=== PATIENT | female | born 1965 | race Caucasian/White ===

== ENCOUNTER 2020-03-16 07:06 | Day surgery (SDC) | payer BC ==
[2020-03-16] MEDS ORDERED: LIDOCAINE 1% MPF 5 ML VIAL ONE (07:31)
[2020-03-16] MEDS ORDERED: dexAMETHasone 10 MG/ML VIAL ONE (07:31)
[2020-03-16] MEDS ORDERED: MIDAZOLAM HCL 2 MG/2 ML INJ ONE (07:31)
[2020-03-16] MEDS ORDERED: propofoL 200 MG/20 ML VIAL IV ONE (07:31)
[2020-03-16] MEDS ORDERED: LIDOCAINE 1% W/EPI 1:100,000 10 ML VIAL ONE (07:31)
[2020-03-16] MEDS ORDERED: FENTANYL CITR 100 MCG/2 ML ONE (07:31)
[2020-03-16] MEDS ORDERED: Ringers Lactate 1,000 ML IV ONE (07:40)
[2020-03-16] MEDS ORDERED: KETOROLAC 30 MG/ML INJ ONE (09:02)
[2020-03-16] MEDS ORDERED: ONDANSETRON 4 MG/2 ML VIAL ONE ×2 (09:10→09:47)
[2020-03-16] MEDS: MORPHINE 4 MG/ML SYR ONE ×2 (09:27→09:32)
[2020-03-16] MEDS ORDERED: IBUPROFEN 200 MG TAB PO ONE (10:34)
[2020-03-16 11:55] VITALS: BP 105/62; TEMP 97.3; O2SAT 98
--- NOTE | 2020-03-16 16:07 | RAD REPORT ---
EXAM DESCRIPTION: US - Ultrasound Intraop - 03/16/2020 8:50 am CLINICAL HISTORY: Clinical history are hysteroscopy D and C. COMPARISON: None. FINDINGS: Sonographic guidance was given to Dr. Reich for a hysteroscopy D and C. Please refer to her report for additional findings. IMPRESSION: Sonographic guidance as described above.
--- NOTE | 2020-03-16 18:53 | OP ---
Date of Procedure: 03/16/2020 Surgeon: Corie Reich MD Preoperative Diagnosis: Postmenopausal bleeding, right lower quadrant pain and hematometra. Postoperative Diagnosis: Postmenopausal bleeding, right lower quadrant pain and hematometra. No jessica dence of hematometra. Procedure Performed: Hysteroscopy, dilatation and curettage under ultrasound guidance. Anesthesia: General with LMA. Specimens: Endometrial curettings. Complications: No complications. Drains: No drains. Condition: Stable. Findings: Uterus was anteflexed. The canal was easily opened. Pelvic ultrasound was used to guide the dilator once uterine cavity in the sagittal section was identified. The sound was passed under d irect visualization. The stenosis sound was removed. The vulva, vagina, and perineum were prepped a nd draped in a sterile fashion. Speculum was placed to expose the cervix. Anterior lip was grasped with an Allis clamp. Then diagnostic hysteroscope was introduced into the cervical canal and under d irect visualization uterine cavity was entered. The cavity was empty. There was a small amount of c lot that was cleaned out. No evidence of any other adhesions. The cavity was undistorted and no abn ormal areas noted. Endometrial sampling was performed with a small endometrial curette adequately. cavity empty. Endometrial sample was performed with the curette. No polyp noted. Details Of Procedure: The patient is a 54-year-old female with history of endometrial ablation for h eavy bleeding. She was noted to present with postmenopausal bleeding and right lower quadrant pain. On transvaginal ultrasound, there appeared to be thickened endometrium suspicious for a hematometra or a polyp. So, given the risk that there could be cervical stenosis, she was consented to have this procedure at the hospital. She was also extremely anxious and needed some anesthesia to perform thi s procedure. Bleeding, infection, perforation of the uterus were all reviewed with the patient. The patient was c onsented. Her was also present in the preop area and reviewed this again, and she was taken back to OR, placed in supine fashion on the operating table. General anesthesia was given with LMA. Vulva, vagina, and perineum were prepped and draped in a sterile fashion. Ultrasound was performed. The pelvic ultrasound was performed to identify the uterus. The uterus was scanned in a sagittal a nd transverse section. Then under sagittal guidance, an Allis clamp was placed in the anterior lip a nd cervical dilator was used to dilate the cervix. Then, diagnostic hysteroscope was introduced unde r direct vision and entered the uterine cavity without problems. Then the ultrasound was discontinue d. I went down to take pictures. Scope was removed. Endometrial curettings were performed. There was no need for any MyoSure device. All the instruments were removed. No polyp was present either. Specimen was handed off for permanent pathology. Instruments were removed. Instruments, needle and sponge counts were correct at the end of the case. The patient tolerated the procedure well. EBL w as minimal. The patient was recovered from anesthesia and taken to PACU in stable condition. Findin gs were reviewed with the and she will be given the results as well as pathology results at h er followup appointment. GABBY Voice ID: [id number] Report ID: [id number]
--- OUTSIDE RECORDS SUMMARY | 2020-03-17 02:52 | XMS REPORT | Summary of Care ---
:1965 Author Organization [facility] Address [address] [place] [address] Care Team Providers Name Role Phone Stuart Amezquita Primary Care Provider Stuart Amezquita Unavailable Reason for Referral MRI/CAT Scan (Routine) Status Reason Specialty Diagnoses / Referred By Referred To Procedures Contact Contact Pending Review Diagnostic Diagnoses Right lower quadrant pain RIGHT LOWER QUADRANT PAIN Kadiyala, Radiology Procedures CT ABDOMEN PELVIS W CONTRAST CHG CT SCAN,ABDOMENT AND PELVIS,W CONTRAST CT ABDOMEN PELVIS W CONTRAST MD Corie [address] [place] [address] Reason for Visit MRI/CAT Scan (Routine) Status Reason Specialty Diagnoses / Referred By Referred To Procedures Contact Contact Pending Review Diagnostic Diagnoses Right lower quadrant pain RIGHT LOWER QUADRANT PAIN Kadiyala, Radiology Procedures CT ABDOMEN PELVIS W CONTRAST CHG CT SCAN,ABDOMENT AND PELVIS,W CONTRAST CT ABDOMEN PELVIS W CONTRAST MD Corie [address] [place] [address] Encounter Details Date Type Department Care Team Description 02/20/2020 Hospital Encounter [facility] Lynn Loaiza, Jennifer Duran MD Tomography [address] [place] [address] [place] [id number] [phone] Allergies Active Allergy Reactions Severity Noted Date Comments Latex Anaphylaxis 12/04/2014 Prednisone Other - See comments Medium 11/21/2018 Adrenal crisis per patient documented as of this encounter (statuses as of 02/21/2020) Medications Medication Sig Dispensed Refills Start Date End Date Status ciprofloxacin HCl 500 Take 1 tablet by 20 tablet 0 11/21/2018 Active mg tabletIndications: mouth 2 (two) Diverticulitis times daily. metroNIDAZOLE 500 mg Take 1 tablet by 14 tablet 0 11/21/2018 Active tabletIndications: mouth 2 (two) Diverticulitis times daily. ondansetron 4 mg Take 1 tablet by 20 tablet 0 11/21/2018 Active disintegrating mouth every 8 tabletIndications: (eight) hours as Diverticulitis needed for Nausea and Vomiting (N/V). acetaminophen-codeine Take 1 tablet by 15 tablet 0 12/05/2018 Active (TYLENOL-CODEINE #3) mouth every 6 300-30 mg (six) hours as tabletIndications: Left needed for Pain lower quadrant (scale 4-6). abdominal pain, Diverticulitis lisinopril-hydrochlorot 0 05/21/2019 Active hiazide 20-12.5 mg per tablet omeprazole 40 mg 0 05/21/2019 Ac tive capsule azithromycin 250 mg 0 07/01/2019 Active tablet documented as of this encounter (statuses as of 02/21/2020) Active Problems Problem Noted Date Rectal bleeding 12/04/2014 Essential hypertension 12/04/2014 documented as of this encounter (statuses as of 02/21/2020) Social History Tobacco Use Types Packs/Day Years Used Date Never Smoker Smokeless Tobacco: Never Used Sex Assigned at Date Recorded Not on file COVID-19 Exposure Response Date Recorded In the last month, have you been in contact with No / Unsure 02/13/2020 1:05 PM SENIOR GAME DEVELOPER someone who was confirmed or suspected to have Coronavirus / COVID-19? documented as of this encounter Last Filed Vital Signs Not on filedocumented in this encounter Plan of Treatment Health Maintenance Due Date Last Done Comments HEPATITIS C (HCV) SCREEN 1965 Depression Screening 1975 DTaP,Tdap,and Td Vaccines (1 - 11/22/1982 Tdap) PAP SMEAR 11/22/1984 Breast Cancer Screening (MAMMOGRAM) 2003 COLON CANCER SCREENING ANNUAL 11/22/2013 FIT/FOBT COLON CANCER SCREENING FIT DNA 11/22/2013 EVERY 3 YEARS COLON CANCER SCREENING 11/22/2013 SIGMOIDOSCOPY EVERY 5 YEARS COLONOSCOPY 11/22/2013 Colorectal Cancer Screening 11/22/2013 Zoster Recombinant Vaccine 11/22/2013 (SHINGRIX) (1 of 2) INFLUENZA VACCINE (#1) 2019 PNEUMOCOCCAL 0-64 YEARS COMBINED Aged Out No longer eligible based on SERIES patient's age to complete this topic documented as of this encounter Procedures Procedure Name Priority Date/Time Associated Comments Diagnosis CT ABDOMEN PELVIS W Routine 02/20/2020 11:02 Right lower Resu lts for this CONTRAST AM SENIOR GAME DEVELOPER quadrant pain procedure are in the results section. NO SHOW OR MISSED Routine 02/20/2020 9:23 APPOINTMENT POLICY AM SENIOR GAME DEVELOPER ACKNOWLEDGEMENT CONSENT/REFUSAL FOR Routine 02/20/2020 9:23 DIAGNOSIS AND TREATMENT AM SENIOR GAME DEVELOPER [facility] PATIENT FINANCIAL Routine 02/20/2020 9:22 POLICY AM SENIOR GAME DEVELOPER documented in this encounter Results CT ABDOMEN PELVIS W CONTRAST (02/20/2020 11:02 AM SENIOR GAME DEVELOPER) Specimen Impressions Performed At PACS/VR/DOSE Colonic diverticulosis without diverticu litis. Fat-containing moderate-sized umbilical and small bilateral inguinal hernias. Hepatomegaly and hepatic steatosis. Narrative Performed At This result has an attachment that is no t available. CT ABDOMEN PELVIS W CONTRAST 02/20/2020 9:50 AM PACS/VR/DOSE HISTORY: Right lower quadrant pain COMPARISON: CT abdo men pelvis 12/05/2018 TECHNIQUE: Axial images of the abdomen and pelvis were acquired after administration of intravenous contrast. Coronal and sa gittal reconstructions were also created. FINDINGS: LOWER CHEST: The lungs bases are clear. HEPATOBILIARY: Hepatomegaly measuring 19.7 cm cranioca udal with decreased attenuation consistent with hepatic steatosis.. . No biliary ductal dilatation. Prior cholecystectomy. SPLEEN: No splenomegaly. PANCREAS: No ductal dilation. A 5 mm fat density in th e uncinate process (2:63) likely represent lipoma, unchanged. ADRENAL GLANDS: No adrenal nodules. KIDNEYS: No hydronephrosis or stone. No solid mass. GI TRACT: No dilation or wall thickening. Colonic dive rticulosis extensive in the sigmoid colon without diverticulitis. PERITONEUM AND RETROPERITONEUM: No free air or free fl uid. LYMPH NODES: No lymphadenopathy is seen. PELVIS/BLADDER: Anteverted uterus. A 1.5 cm posterior lower uterine segment subserosal fibroid is noted. Normal ovaries.. No adnex al masses. The urinary bladder is partially distended with normal wal l thickness. VESSELS: No aortic aneurysm or critical stenosis. two right renal arteries. BONES AND SOFT TISSUES: No aggressive osseous lesion. Moderate size fat-containing umbilical hernia measurin g 4.3 cm in transverse and 4.7 cm in length. Small fat-containing bilateral inguinal hernias left greater than right. Procedure Note [facility], Radiant Results Inft User - 2020 11:[address]AME [address]OPER [address] ABDOMEN PELVIS W CONTRAST 02/20/2020 9:50 AM HISTORY: Right lower quadrant pain MARLON RISON: CT abdomen pelvis 12/05/2018 TECHNIQUE: Axial images of the abdomen a nd pelvis were acquired after administration of intravenous contrast. Coronal and sagittal reconstructions were also created. FINDINGS: LOWER CHEST: The lungs bases are clear. HEPATOBILIARY: Hepatomegaly measuring 19 .7 cm craniocaudal with decreased attenuation consistent with hepatic stea tosis.. . No biliary ductal dilatation. Prior cholecystectomy. SPLEEN: No splenomegaly. PANCREAS: No ductal dilation. A 5 mm fat density in the uncinate process (2:63) likely represent lipoma, unchange d. ADRENAL GLANDS: No adrenal nodules. KIDNEYS: No hydronephrosis or stone. No solid mass. GI TRACT: No dilation or wall thickening . Colonic diverticulosis extensive in the sigmoid colon without diverticuli tis. PERITONEUM AND RETROPERITONEUM: No free air or free fluid. LYMPH NODES: No lymphadenopathy is seen. PELVIS/BLADDER: Anteverted uterus. A 1.5 cm posterior lower uterine segment subserosal fibroid is noted. Normal ovar ies.. No adnexal masses. The urinary bladder is partially distended w ith normal wall thickness. VESSELS: No aortic aneurysm or critical stenosis. two right renal arteries. BONES AND SOFT TISSUES: No aggressive os seous lesion. Moderate size fat-containing umbilical h ernia measuring 4.3 cm in transverse and 4.7 cm in length. Small f at-containing bilateral inguinal hernias left greater than right. IMPRESSION Colonic diverticulosis without diverticu litis. Fat-containing moderate-sized umbilical and small bilateral inguinal hernias. Hepatomegaly and hepatic steatosis. Performing Organization Address City/State/Zipcode Phone Number PACS/VR/DOSE documented in this encounter Visit Diagnoses Diagnosis Right lower quadrant pain Abdominal pain, right lower quadrant documented in this encounter Administered Medications Medication Order MAR Action Action Date Dose Rate Site iohexol (OMNIPAQUE 350 BULK-150 Given 02/20/2020 10:46 AM SENIOR GAME DEVELOPER 12 0 mL mL) injection 120 mL 120 mL, Intravenous, ONCE, 1 dose, 02/20/20 at 1115, Routine documented in this encounter Insurance Payer Benefit Plan Subscriber ID Effective Dates Phone Address Type / Group [employer] [facility] [id number] 2019-Rach [phone] [address] PPO/POS [place] [id number] [place] [address] documented as of this encounter
--- OUTSIDE RECORDS SUMMARY | 2020-03-17 02:52 | XMS REPORT | Continuity of Care Document ---
:1965 Author Organization [facility] t Address [address] [place] [address] Care Team Providers Name Role Phone Rachana MACIAS Attending Clinician Ahsan RN Attending Clinician Unavailable Hans [facility] Attending Clinician Po[facility] Attending Clinician Unavailable Jemal MACIAS Attending Clinician Ulices RN, L Attending Clinician Unavailable Problems This patient has no known problems. Allergies, Adverse Reactions, Alerts This patient has no known allergies or adverse reactions. Medications This patient has no known medications. Procedures This patient has no known procedures. Encounters Start End Encounter Admission Attending Care Care Encounter Source Date/Time Date/Time Type Type Clinicians Facility Department ID 2020-02-20 2020-02-20 [facility] [id number] 09:20:00 23:59:00 Encounter Corie Reed [id number] [place] [id number] [place] [id number] 2019-07-02 2019-07-02 Telephone ITZEL Foreman [id number] 00:00:00 00:00:00 Halina RIOS [id number] [id number] 2019-07-01 2019-07-01 [facility] [id number] 14:40:00 23:59:00 Encounter Lore Reed [id number] [place] [id number] [place] [id number] 2019-07-01 2019-07-01 Urgent Pob1, Acute [facility] [id number] 13:50:45 14:10:45 [facility] [id number] [place] [id number] [facility] [id number] [address] 2019-05-23 2019-05-23 Telephone Jemal ROBBINS [id number] 00:00:00 00:00:00 , Mily RIOS [id number] [facility] [id number] 2019-05-23 2019-05-23 Telephone ITZEL Elena [id number] 00:00:00 00:00:00 Beatrice RIOS [id number] [facility] [id number] Results This patient has no known results.
== END 2020-03-16 11:05 | disposition home or self-care (01) ==
LOC: OR 07:06
PROVIDERS: ATTEND Obstetrics & Gynecology
PROC: 0UJD8ZZ Inspection of Uterus and Cervix, Via Natural or Artificial Opening Endoscopic (ICD-10-PCS; 2020-03-16)
PROC: 0UDB7ZX Extraction of Endometrium, Via Natural or Artificial Opening, Diagnostic (ICD-10-PCS; principal; 2020-03-16 08:00)
DX: N95.0 Postmenopausal bleeding (principal); R10.31 Right lower quadrant pain; N94.12 Deep dyspareunia; K42.9 Umbilical hernia without obstruction or gangrene; I10 Essential (primary) hypertension; Z86.73 Personal history of transient ischemic attack (TIA), and cerebral infarction without residual deficits; B02.9 Zoster without complications; N80.9 Endometriosis, unspecified; Z20.822 Contact with and (suspected) exposure to COVID-19
CPT/HCPCS: 88305; 76998; 58558; U0002; J2704; J2250; J3010; J1100; J7120; J2405 ×2

== ENCOUNTER 2020-05-18 06:34 | Day surgery (SDC) | payer BC ==
--- NOTE | 2020-03-18 11:48 | RAD REPORT ---
EXAM DESCRIPTION: RAD - Chest Pa And Lat (2 Views) - 03/18/2020 11:13 am CLINICAL HISTORY: pre op Chest pain. COMPARISON: No comparisons FINDINGS: The lungs are clear. The heart is mildly enlarged in size. No displaced fractures.
[2020-03-18 12:05] LABS: Urine Appearance CLEAR; Urine Bilirubin NEGATIVE (NEG); Urine Blood TRACE (NEG); Urine Color YELLOW; Urine Glucose NEGATIVE (NEG); Urine Protein NEGATIVE (NEG); Urine Specific Gravity 1.015 (1.005-1.030); Urine Urobilinogen 0.2 mg/dL (0.2-1.0)
[2020-03-18 12:11] LABS: Absolute Lymphocytes (CBC) 3.5 K/uL (0.7-4.9); Basophils % 0.5 % (0-1.3); Hematocrit 38.1 % (36.0-45.0); Lymphocytes % 36.2 % (15.3-44.8); MPV 8.7 fL (7.6-11.3)
[2020-03-18 12:22] LABS: Potassium 3.7 mmol/L (3.5-5.1)
[2020-03-18 12:23] LABS: Urine Microscopic Reflex ORDER UMIC
[2020-03-18 12:36] LABS: Urine Bacteria NONE SEEN /HPF (<20); Urine RBC <5 /HPF (NONE SEEN)
--- NOTE | 2020-03-21 08:01 | EKG ---
Test Date: 2020-03-18 Test Time: 10:57:12 Air Intelligence Officer: FEDERICO MEASUREMENT RESULTS: Intervals: Rate: 76 MN: 164 QRSD: 96 QT: 420 QTc: 472 [place]: P: 63 MN: 164 QRS: -3 T: -8 INTERPRETIVE STATEMENTS: Normal sinus rhythm Possible Left atrial enlargement Cannot rule out Anterior infarct, age undetermined Abnormal ECG Compared to ECG 12/15/2013 09:15:59 Myocardial infarct finding now present Electronically Signed On 03-21-20 07:54:10 VP TRAINING by Andrew Turner
[2020-05-12 12:21] LABS: Potassium 3.7 mmol/L (3.5-5.1)
[2020-05-12 12:27] LABS: Hematocrit 41.1 % (36.0-45.0); MPV 8.3 fL (7.6-11.3); RBC Red Blood Cell Count 4.72 M/uL (3.86-4.86)
[2020-05-18] MEDS ORDERED: SCOPOLAMINE HYDROBROMIDE PATCH TD ONE (07:16)
[2020-05-18] MEDS ORDERED: Ringers Lactate 1,000 ML IV ONE ×3 (07:16→13:02)
[2020-05-18] MEDS ORDERED: CEFAZOLIN/SWI 2gm 2 GM/20 ML SYR ONE (07:17)
[2020-05-18] MEDS ORDERED: propofoL 200 MG/20 ML VIAL IV ONE (07:23)
[2020-05-18] MEDS ORDERED: KETAMINE HCL 500 MG/5 ML VIAL ONE (07:23)
[2020-05-18] MEDS ORDERED: FENTANYL CITR 250 MCG/5 ML ONE (07:23)
[2020-05-18] MEDS ORDERED: NS 0.9% VIAL 10 ML ONE (07:23)
[2020-05-18] MEDS ORDERED: LIDOCAINE 1% MPF 5 ML VIAL ONE (07:23)
[2020-05-18] MEDS ORDERED: dexAMETHasone 10 MG/ML VIAL ONE (07:23)
[2020-05-18] MEDS ORDERED: ONDANSETRON 4 MG/2 ML VIAL ONE ×2 (07:23→12:22)
[2020-05-18] MEDS ORDERED: MIDAZOLAM HCL 2 MG/2 ML INJ ONE ×2 (07:23→12:54)
[2020-05-18] MEDS ORDERED: VECURONIUM 10 MG/VIAL IV ONE (07:29)
[2020-05-18] MEDS: BUPIVACAINE 0.25% PF 30 ML VIAL ONE ×2 (08:19→08:20)
[2020-05-18] MEDS ORDERED: EPHEDRINE SULF 50 MG/ML VIAL ONE (08:29)
[2020-05-18] MEDS ORDERED: KETOROLAC 30 MG/ML INJ ONE (10:39)
[2020-05-18] MEDS: MORPHINE 4 MG/ML SYR ONE ×2 (12:04→12:09)
[2020-05-18] MEDS ORDERED: MEPERIDINE HCL 25 MG/ML SYR ONE ×2 (12:46→13:40)
[2020-05-18] MEDS ORDERED: PROMETHAZINE INJ 25 MG/ML AMP IV ONE (14:03)
[2020-05-18] MEDS ORDERED: HYDROCODONE/APAP 5/325 MG TAB PO ONE ×2 (14:07→16:16)
[2020-05-18] MEDS ORDERED: PROMETHAZINE INJ 25 MG/ML AMP ONE (14:16)
--- NOTE | 2020-05-18 14:24 | OP ---
Date of Procedure: 05/18/2020 Surgeon: Rene Mcclain MD Solar Panel Technician: SHERRY Monk. Preoperative Diagnosis: Incisional hernia. Postoperative Diagnosis: Incisional hernia with adhesions. Procedures Performed: Laparoscopic repair of incisional hernia and lysis of adhesions. Estimated Blood Loss: Minimal. Specimen: Hernia sac and contents. Findings: As above. Anesthesia: General. Complications: None. Disposition: The patient tolerated the procedure in stable condition and taken to Recovery in good g eneral condition. Please note, I came in at the beginning of the case and allowed access into the abdomen with a left u pper quadrant trocar placement followed by umbilical trocar placeement into the hernia. Then, Dr. Mikey palm her [facility], following which I returned and performed the hernia surgery. Description Of Porocedure: After general anesthesia was begun, the patient was prepped and draped in the usual sterile fashion. A 1 cm left upper quadrant incision was made. Subcutaneous tissues were divided. Fascia was identified and divided. A #1 Vicryl stay suture was placed. Peritoneal cavity was entered with sharp and blunt dissection. A 12 mm trocar was placed into the peritoneal cavity und er direct vision. Pneumoperitoneum was established. Then, a 5 trocar placed in the left lower quadr ant. Laparoscopy revealed some incarcerated omentum into the hernia which was reduced and the transv erse colon was present near by as well. LigaSure was used to lyse all the adhesions and remove the c olon away from the hernia sac, following which 12 mm trocar was placed through the hernia for the pur poses of the [facility] to be performed by Dr. Reich, at which point, she proceeded to do her procedu re. After she was finished, I returned and then made a 4 cm incision over the hernia. Subcutaneous tissue was divided. Good fascial edges were obtained and a primary closure of the fascia was done wi th #1 PDS running suture and then a Bard Marlex mesh, 12 x 10 cm was used to cover the entire hernia site and this was placed into the peritoneal cavity in a standard fashion and the balloon system was used to deploy the mesh and AbsorbaTack was used to secure the mesh to the peritoneal surface. Compl ete coverage of the hernia was performed without any evidence of injury or bowel injury appreciated. Subsequently, #1 Vicryl was used to close 1 of the 11 mm trocar sites in the suprapubic region using Endo Close and then all trocars were removed under direct vision. Stay sutures were tied to each ot her to approximate the fascia defect in the left upper quadrant. Subcutaneous wounds were irrigated. Bleeding was controlled with cautery. Then, 3-0 chromic was used to approximate the subcutaneous t issue and close all wound. Sterile dressing was applied. The patient was awakened and taken to [facility] very in good general condition. Discharge Note: The patient will go to Day Surgery and home when stable. Disposition: Home. Condition: Stable. Discharge Instructions: Resume home medications and diet. Activity as tolerated. No heavy lifting. Remove outer dressing in 2 days. Shower. Keep wound clean and dry. Keep Steri-Strips. Abdominal binder. Incentive spirometry as ordered. Pain medicine per Dr. Reich. Follow up my office in a week. Call for appointment. XOCHITL/ANA MARÍA Voice ID: [id number] Report ID: [id number]
[2020-05-18] MEDS ORDERED: HYDROCODONE/APAP 5/325 MG TAB ONE (16:32)
[2020-05-18] MEDS ORDERED: Ringers Lactate 1,000 ML IV SCH (17:00)
[2020-05-18] MEDS ORDERED: MEPERIDINE HCL 50 MG/ML IM PRN (17:35)
[2020-05-18 17:38] VITALS: O2SAT 88
[2020-05-18] MEDS ORDERED: PROMETHAZINE INJ 25 MG/ML AMP IV PRN (17:39)
[2020-05-18] MEDS ORDERED: PROMETHAZINE 25 MG TABLET PO PRN (17:39)
[2020-05-18 18:03] LABS: Absolute Lymphocytes (CBC) 0.6 K/uL (0.7-4.9); Hematocrit 34.2 % (36.0-45.0); Lymphocytes % 4.7 % (15.3-44.8); MPV 9.6 fL (7.6-11.3); RBC Red Blood Cell Count 3.97 M/uL (3.86-4.86)
[2020-05-18 18:30] VITALS: BMI 29.7
[2020-05-18 18:47] LABS: Blood Morphology Comment NOT SEEN (NOT SEEN); Platelet Estimate ADEQ; White Blood Cell Scan OK (OK)
[2020-05-18 19:50] LABS: Potassium 3.9 mmol/L (3.5-5.1)
[2020-05-18] MEDS: IBUPROFEN 600 MG TAB PO PRN (20:04)
--- NOTE | 2020-05-18 20:59 | OP ---
Date of Procedure: 05/18/2020 Surgeon: Corie Reich MD Materials Engineering Technician: Karie Bialon. Preoperative Diagnoses: Right lower quadrant pain, deep dyspareunia, and pelvic pain. The patient w ith prior history of endometriosis and 5 years post ablation with recurrent postmenopausal bleeding. Postoperative Diagnoses: Right lower quadrant pain, deep dyspareunia, and pelvic pain. The patient with prior history of endometriosis and 5 years post ablation with recurrent postmenopausal bleeding and extensive endometriosis. Procedures Performed: Total laparoscopic hysterectomy, bilateral salpingo-oophorectomy, endometriosi s excision, and lysis of sigmoid adhesions. Co-surgeon: Dr. Mcclain. Please refer to his op note for laparoscopic umbilical and ventral hernia re pair. Specimens: Uterus, bilateral tubes and ovaries. Complications: No complications. Drains: No drains. Condition: Stable. Findings: Anterior abdominal wall, left upper quadrant entry by Dr. Mcclain. There was a 5 to 6 cm ve ntral hernia. Umbilical trocar for another 10 port placed through this and sigmoid adhesions to the posterior wall of the uterosacral ligament and the uterus. Extensive endometriosis on the pelvic per itoneum including the posterior cul-de-sac, peritoneum on the rectosigmoid as well as anterior pelvic peritoneum over the bladder and on the sidewalls. like implants were present everywhere. Uterus unremarkable. Small ovaries unremarkable as well and tubes. No complications during the proc edure and ureteric peristalsis normal. No cystoscopy was performed. Bladder adhesions were minimal. Indications: The patient is a 54-year-old female with postmenopausal bleeding, 5 years post ablation here. The ablation was done for heavy periods. Few decades ago, she had laparotomy and endometrios is removal, had 4 C-sections subsequently, and currently her pain has gotten severe and intolerable, so she was evaluated for this. Given her history, it was suspected that this would be the problem. Ultrasound did not show any evidence of ovarian masses and endometrial sampling was negative. So after consenting the patient for a laparoscopic hysterectomy, bilateral salpingectomy, possible oo phorectomy, if there was extensive endometriosis seen, she was consented and brought to the OR. The umbilical hernia was also to be managed at the same time and she was referred to Dr. Mcclain. She had a cardiac clearance as well. Severe anxiety from PTSD from 1 of her C-sections where she was awake d uring the procedure and had no anesthesia. She was counseled on this and pelvic care taken. Description Of Procedure: She was taken back to OR, placed in supine fashion on the operating table. General anesthesia was given. Placed in dorsal lithotomy position. Pelvic exam was performed and then abdomen, vulva, vagina, and perineum were prepped and draped in a sterile fashion. Glass was pl aced to drain the bladder and attached for retrograde filling. Then she had a speculum placed in the vagina and exposed the cervix. Anterior lip was grasped with 2 Allis clamps and a large VCare intro duced, fixed in place, and this area was draped. Please refer to Dr. Mcclain's note for the entry. Once all the ports were placed at the umbilicus, lef t upper quadrant and left lower quadrant, then, I took over the case. Then 10/12 suprapubic port was placed under direct vision without any problems. All the skin incisions and the fascia were injecte d with 0.25% Marcaine at the entry and exit. After checking the pelvic anatomy, there were adhesions to the posterior uterosacral and distal utero sacral ligament and posterior wall of the uterus. Endometriosis seen in the pelvic perito neum close to the uterus and these implants were included and excised along with the uterine specimen . There were implants on the peritoneum lateral to the ovary on the top leave of the broad ligament parallel to the IP. All these were also excised while taking the ovary. The hysterectomy was starte d after inspecting the courses of the ureters, which were unremarkable and nondisplaced. The round ligament on the left was taken down, opened the peritoneum anteriorly parallel to the IP. Then, the IP pedicle was dissected open and the tube was taken down. Utero-ovarian ligament was take n down. The ovary was left hanging on its pedicle freely. Then took down the posterior peritoneum t o the uterosacral on the left side. Then went anteriorly and the broad ligament was taken down to sk eletonize the vessels anteriorly. The dissection was performed to open the peritoneum all the way to the opposite side and then the prevesical space was opened up. It was clearly not significantly adh ered. The bladder was systematically taken down and anterior vaginal wall was exposed. Then the ves sels were exposed. Vessels were taken down with the help of the LigaSure, cauterized but not cut. T hen on the opposite side, took down the mesosalpinx. Then, utero-ovarian ligament, round ligament, a nterior broad ligament was joined to finish the bladder flap and then adhesions were taken down from the bladder from a prior C-sections and posterior leaf of the broad ligament was dissected all the wa y to the distal uterosacral here on this side. The apical support was not that great but it is reaso nable. So once the vessels were skeletonized and exposed, the bladder was dissected down perfectly o n the anterior vaginal wall here on the right side. Then, the vessels were taken down with the help of the LigaSure and then cardinal ligaments were taken down partially so that the VCare cup was well exposed. Then on the left side, similar dissection was performed taking down the vessels, then takin g down the cardinals. Then circumferential colpotomy with a monopolar hook blade was performed. Spe cimen was pulled out through the vagina along with the tubes attached. Then, the ovarian pedicle was nicely on the right side as well dissecting the peritoneum vi sualizing the ureter. Then, this was taken down removing the entire ovary. Then, similar dissection was performed on the opposite side and the ovary on the left side was taken down with the help of th e LigaSure. All specimens were retrieved through the vagina and vaginal closure was done. Both angl e sutures were placed with 0 PDS at both angles for hemostasis. There was excellent hemostasis after these 2 stitches were placed. Then, the closure of the anterior posterior vaginal wall including th e connective tissue was done with 3 [id number] in the center and there was excellent support and reattachment of the vaginal apex. The ureters were visualized without any problems and there was good peristalsis. No evidence of elec trical, mechanical, or thermal injury to them. Thorough irrigation and suction of the pelvis were done and cleaned up. Then the case was turned ovroger r to Dr. Mcclain for completion and repair of the ventral hernia. She will follow up with me in 1 week . I discussed the findings with the and I explained the reason for removal of ovaries to be for the extensive endometriosis and for relief of her pain since all implants cannot be excised. Thi s was the best alternative at this time and she will get some hormone therapy to transition from surg ical menopause. RAMON/ANA MARÍA Voice ID: [id number] Report ID: [id number]
[2020-05-18] MEDS: HYDROCODONE/APAP 5/325 MG TAB PO PRN (23:57)
[2020-05-19] MEDS: IBUPROFEN 600 MG TAB PO PRN ×2 (03:50→09:07)
[2020-05-19] MEDS: HYDROCODONE/APAP 5/325 MG TAB PO PRN (07:57)
[2020-05-19 09:26] VITALS: BP 108/57; TEMP 98.6
[2020-05-19] MEDS: HYDROCODONE/APAP 5/325 MG TAB ONE ×2 (10:28→10:45)
[2020-05-19] MEDS ORDERED: KETOROLAC 30 MG/ML INJ IM ONE (10:29)
[2020-05-19] MEDS ORDERED: RANITIDINE 150 MG TABLET PO ONE (10:33)
[2020-05-19] MEDS ORDERED: ALPRAZOLAM 1 MG TABLET PO ONE (10:35)
[2020-05-19] MEDS ORDERED: KETOROLAC 30 MG/ML INJ ONE (10:41)
== END 2020-05-19 11:30 | disposition home or self-care (01) ==
LOC: OR 06:34 → 2ND-WC 17:13 → OR 05-19 11:30
PROVIDERS: ATTEND Obstetrics & Gynecology
PROC: 0DNW4ZZ Release Peritoneum, Percutaneous Endoscopic Approach (ICD-10-PCS; 2020-05-18)
PROC: 0UT94ZZ Resection of Uterus, Percutaneous Endoscopic Approach (ICD-10-PCS; 2020-05-18)
PROC: 0UT24ZZ Resection of Bilateral Ovaries, Percutaneous Endoscopic Approach (ICD-10-PCS; 2020-05-18)
PROC: 0UT74ZZ Resection of Bilateral Fallopian Tubes, Percutaneous Endoscopic Approach (ICD-10-PCS; 2020-05-18)
PROC: 0DBW4ZZ Excision of Peritoneum, Percutaneous Endoscopic Approach (ICD-10-PCS; 2020-05-18)
PROC: 0WUF4JZ Supplement Abdominal Wall with Synthetic Substitute, Percutaneous Endoscopic Approach (ICD-10-PCS; principal; 2020-05-18 07:30)
DX: N94.12 Deep dyspareunia (principal); R10.31 Right lower quadrant pain; R10.2 Pelvic and perineal pain; K43.2 Incisional hernia without obstruction or gangrene; K66.0 Peritoneal adhesions (postprocedural) (postinfection); Z20.822 Contact with and (suspected) exposure to COVID-19; N80.3 Endometriosis of pelvic peritoneum
CPT/HCPCS: 49654; 44180; 58571; 58662; 93005; 85025 ×2; 80048 ×3; 36415 ×3; 86900 ×2; 86850 ×2; 81025; 86902; 86870 ×2; 86901 ×2; 88302; 88307; 85027; 71046; U0002 ×2; J2704; J2550 ×2; J2250 ×2; J3010; J1100; J2175 ×2; J0690; J7120 ×3; J2405 ×2; 81003; 81015

== ENCOUNTER 2024-03-07 10:30 | Inpatient (IN) | payer OTHER ==
--- OUTSIDE RECORDS SUMMARY | 2024-03-07 10:32 | XMS REPORT | Continuity of Care Document ---
Author Name Unknown Address [address] [place] [address] [facility] thconnect Address [address] [facility] [address] [place] [address] Care Team Providers Care Guard Captain Name Role Phone HARJINDER SCHULTZ Primary Care Physician Unav Masood Richardson MD Attending Clinician [phone] MASOOD REICH Attending Clinician UnavailHalina Arguello RN Attending Clinician Unavailable LORE VAN Attending Clinician Unavailable Lore Pierre Attending Clinician [phone] [facility] Attending Clinician UnaMerari Dewitt MD Attending Clinician Mily Joaquin MD Attending Clinician [phone] Beatrice Elena RN Attending Clinician Unava iledith UNKNOWN, ATTENDING Attending Clinician Unavailab JOE Ham Attending Clinician Unavailable KELSY AVILA Attending Clinician Unavailable LORE VAN Admitting Clinician Unavailable JOE PAZ Admitting Clinician Unavailable KELSY AVILA Admitting Clinician Unavailable Payers Payer Name Policy Type Policy Number Effective Date Expirati on Date Source Problems Condition Name Condition Details Condition Category Status Onset Date Resolution Date Last Treatment Date Treating Clinician Comments Source Rectal bleeding Rectal bleeding Disease Active 2014-02 00:00: 00 [facility] Essential hypertensi on Essential hypertensi on Disease Active 2014-02 00:00: 00 [facility] Allergies, Adverse Reactions, Alerts Allergy Name Allergy Type Status Severity Reaction(s) Onset Date Inactive Date Treating Clinician Comments Source Predniso ne Propensi ty to adverse reaction s Active Other - See comments 2018-02 00:00: 00 Adrenal crisis per patient [facility] PREDNISO NE DRUG INGREDI Active Med Other-Cmnt 2018-02 00:00: 00 [facility] Latex Propensi ty to adverse reaction s Active Anaphylaxis 2014-02 00:00: 00 [facility] LATEX DRUG INGREDI Active Anaphylaxis 2014-02 00:00: 00 [facility] Social History Social Habit Start Date Stop Date Quantity Comments Source Sex Assigned At [facility] Exposure to SARS-CoV-2 (event) Not sure [facility] Tobacco use and exposure 2019-07-01 00:00:00 2019-07-01 00:00:00 Never used [facility] Smoking Status Start Date Stop Date Source Never smoker [facility] Medications Ordered Medication Name Filled Medication Name Start Date Stop Date Current Medication? Ordering Clinician Indication Dosage Frequency Signature (SIG) Comments Components Source iohexol (OMNIPAQUE 350 BULK-150 mL) injection 120 mL 02-19 17:15: 00 02-19 16:46 :00 No 120mL 120 mL, Intravenou s, ONCE, 1 dose, 02/20/20 at 1115, Routine [facility] azithromyci n 250 mg tablet 06-30 00:00: 00 Yes [facility] bromphenira mine-pseudo ephedrine-D M (BROMFED DM) 2-30-10 mg/5 mL syrup 06-30 00:00: 00 07-11 04:59 :00 No [id number] 5mL Take 5 mL by mouth 4 (four) times daily as needed for Congestion /Allergies or Cough for up to 10 days. [facility] lisinopril- hydrochloro thiazide 20-12.5 mg per tablet 05-20 00:00: 00 Yes [facility] omeprazole 40 mg capsule 2020-0 4-15 00:00: 00 Yes [facility] acetaminoph en-codeine (TYLENOL-CO DEINE #3) 300-30 mg tablet 2018-02 0 00:00: 00 Yes [id number] 1{tbl} Take 1 tablet by mouth every 6 (six) hours as needed for Pain (scale 4-6). [facility] metroNIDAZO LE 500 mg tablet 2018-02 00:00: 00 Yes [id number] 500mg Take 1 tablet by mouth 2 (two) times daily. [facility] ondansetron 4 mg disintegrat ing tablet 2018-02 00:00: 00 Yes [id number] 4mg Take 1 tablet by mouth every 8 (eight) hours as needed for Nausea and Vomiting (N/V). [facility] ciprofloxac in HCl 500 mg tablet 2018-02 00:00: 00 Yes [id number] 500mg Take 1 tablet by mouth 2 (two) times daily. [facility] Vital Signs Vital Name Observation Time Observation Value Comments S ource Systolic blood pressure 2019-07-01 18:55:00 105 mm[Hg] [facility] Diastolic blood pressure 2019-07-01 18:55:00 73 mm[Hg] [facility] Heart rate 2019-07-01 18:55:00 97 /min [facility] Body temperature 2019-07-01 18:55:00 36.56 Jennifer [facility] Respiratory rate 2019-07-01 18:55:00 18 /min [facility] Body weight 2019-07-01 18:55:00 79.379 kg [facility] BMI 2019-07-01 18:55:00 28.25 kg/m2 [facility] Oxygen saturation in Arterial blood by Pulse oximetry 2019-07-01 18:55:00 96 /min [facility] Systolic blood pressure 2019-07-01 18:55:00 105 mm[Hg] [facility] Diastolic blood pressure 2019-07-01 18:55:00 73 mm[Hg] [facility] Heart rate 2019-07-01 18:55:00 97 /min [facility] Body temperature 2019-07-01 18:55:00 36.56 Jennifer [facility] Respiratory rate 2019-07-01 18:55:00 18 /min [facility] Body weight 2019-07-01 18:55:00 79.379 kg [facility] BMI 2019-07-01 18:55:00 28.25 kg/m2 [facility] Oxygen saturation in Arterial blood by Pulse oximetry 2019-07-01 18:55:00 96 /min [facility] Procedures Procedure Date / Time Performed Performing Clinician Source CT ABDOMEN PELVIS W CONTRAST 2020-02-20 17:02:14 Masood Reich [facility] NO SHOW OR MISSED APPOINTMENT POLICY ACKNOWLEDGEMENT 2020-02-20 15:23:39 Doctor Unassigned, [place] [facility] CONSENT/REFUSAL FOR DIAGNOSIS AND TREATMENT 2020-02-20 15:23:00 Doctor Unassigned, [place] [facility] PATIENT FINANCIAL POLICY 2020-02-20 15:22:35 Doctor Unassigned, [place] [facility] XR CHEST 2 VW COVID 2019-07-01 20:05:14 Lore Van [facility] Encounters Start Date/Time End Date/Time Encounter Type Admission Type Attending Clinicians Care Facility Care Department Encounter ID Source 2020-02-20 09:20:00 2020-02-20 23:59:00 Hospital Encounter Masood Reich [facility] [id number] 2020-02-20 09:20:00 2020-02-20 23:59:00 Hospital Encounter Masood Reich [facility] [id number] [facility] 2020-02-20 00:00:00 2020-02-20 00:00:00 Outpatient R MASOOD REICH [facility] [id number] [facility] 2019-07-02 00:00:00 2019-07-02 00:00:00 Telephone [facility] [id number] [id number] 2019-07-02 00:00:00 2019-07-02 00:00:00 Telephone [facility] [id number] [id number] [facility] 2019-07-01 14:40:10 2019-07-01 23:59:00 Outpatient R LORE VAN [facility] [id number] [facility] 2019-07-01 14:40:00 2019-07-01 23:59:00 [facility] [id number] [id number] 2019-07-01 14:40:00 2019-07-01 23:59:00 Hospital Encounter Cece Vanthia [facility] [id number] [id number] [id number] [id number] [facility] 2019-07-01 13:50:45 2019-07-01 14:10:45 Urgent Care [facility], Acute Care Clinic [facility] [address] [id number] [id number] [id number] 2019-07-01 13:50:45 2019-07-01 14:10:45 Urgent Care Pob1, Acute Care Clinic Merari Echols [facility] [address] [id number] [id number] 4.2.7.2.686 [id number] [facility] 2019-05-23 00:00:00 2019-05-23 00:00:00 Telephone [facility] [id number] [id number] 4.2.7.2.686 [id number] 2019-05-23 00:00:00 2019-05-23 00:00:00 Telephone [facility] [id number] [id number] 4.2.7.2.686 [id number] 2019-05-23 00:00:00 2019-05-23 00:00:00 Telephone [facility] [id number] [id number] 4.2.7.2.686 [id number] [facility] 2019-05-23 00:00:00 2019-05-23 00:00:00 Telephone [facility] [id number] [id number] [id number] [id number] [facility] 2019-05-22 09:00:00 2019-05-22 09:00:00 Outpatient R UNKNOWN, ATTENDING [facility] [id number] [facility] 2018-12-05 19:40:38 2018-12-05 22:00:00 Emergency X JOE PAZ [facility] ERT [id number] [facility] 2018-11-21 09:24:04 2018-11-21 11:48:00 Emergency X KELSY AVILA [facility] ERT [id number] [facility] Results Test Description Test Time Test Comments Results Result Comments Source CT ABDOMEN PELVIS W CONTRAST 17:45:24 Colonic diverticulosis without diverticulitis. Fat-containing moderate-sized umbilical and small bilateral inguinalhernias. Hepatomegaly and hepatic steatosis. CT ABDOMEN PELVIS W CONTRAST 02/20/2020 9:50 AM HISTORY: Right lower quadrant pain COMPARISON: CT abdomen pelvis 12/05/2018 TECHNIQUE: Axial images of the abdomen and pelvis were acquired afteradministration of intravenous contrast. Coronal and sagittalreconstructions were also created. FINDINGS: LOWER CHEST: The lungs bases are clear. ? HEPATOBILIARY: Hepatomegaly measuring 19.7 cm craniocaudal with decreasedattenuation consistent with hepatic steatosis.. . No biliary ductal dilatation. Prior cholecystectomy. SPLEEN: No splenomegaly. PANCREAS: No ductal dilation. A 5 mm fat density in the uncinate process(2:63) likely represent lipoma, unchanged. ADRENAL GLANDS: No adrenal nodules. KIDNEYS: No hydronephrosis or stone. No solid mass. GI TRACT: No dilation or wall thickening. Colonic diverticulosis extensivein the sigmoid colon without diverticulitis. PERITONEUM AND RETROPERITONEUM: No free air or free fluid. LYMPH NODES: No lymphadenopathy is seen. PELVIS/BLADDER: Anteverted uterus. A 1.5 cm posterior lower uterine segmentsubserosal fibroid is noted. Normal ovaries.. No adnexal masses. Theurinary bladder is partially distended with normal wall thickness. VESSELS: No aortic aneurysm or critical stenosis. two right renal arteries. BONES AND SOFT TISSUES: No aggressive osseous lesion.Moderate size fat-containing umbilical hernia measuring 4.3 cm intransverse and 4.7 cm in length. Small fat-containing bilateral inguinalhernias left greater than right. [facility], Radiant Results Inft User - 02/20/2020 11:46 AM CSTCT ABDOMEN PELVIS W CONTRAST 02/20/2020 9:50 AMHISTORY: Right lower quadrant pain COMPARISON: CT abdomen pelvis 12/05/2018TECHNIQUE: Axial images of the abdomen and pelvis were acquired afteradministration of intravenous contrast. Coronal and sagittalreconstructions were also created.FINDINGS:LOWER CHEST: The lungs bases are clear. HEPATOBILIARY: Hepatomegaly measuring 19.7 cm craniocaudal with decreasedattenuation consistent with hepatic steatosis.. . No biliary ductal dilatation. Prior cholecystectomy.SPLEEN: No splenomegaly.PANCREAS: No ductal dilation. A 5 mm fat density in the uncinate process(2:63) likely represent lipoma, unchanged.ADRENAL GLANDS: No adrenal nodules.KIDNEYS: No hydronephrosis or stone. No solid mass.GI TRACT: No dilation or wall thickening. Colonic diverticulosis extensivein the sigmoid colon without diverticulitis.PERITONEUM AND RETROPERITONEUM: No free air or free fluid.LYMPH NODES: No lymphadenopathy is seen.PELVIS/BLADDER: Anteverted uterus. A 1.5 cm posterior lower uterine segmentsubserosal fibroid is noted. Normal ovaries.. No adnexal masses. Theurinary bladder is partially distended with normal wall thickness.VESSELS: No aortic aneurysm or critical stenosis. two right renal arteries.BONES AND SOFT TISSUES: No aggressive osseous lesion.Moderate size fat-containing umbilical hernia measuring 4.3 cm intransverse and 4.7 cm in length. Small fat-containing bilateral inguinalhernias left greater than right.IMPRESSIONColonic diverticulosis without diverticulitis.Fat-contain ing moderate-sized umbilical and small bilateral inguinalhernias.Hepatomega ly and hepatic steatosis. [facility] XR CHEST 2 VW COVID 20:07:14 Minimal congestion in the lungs, consistent with nonspecificwhite loss infection/bronchitis. Disclaimer: Generally, the findings on chest imaging in COVID-19 are notspecific, and overlap with other infections, including influenza, H1N1,SARS and MERS.According to the Centers for Disease Control (CDC) and the [employer], viral testing remains the only specific method of diagnosiseven if CXR or CT findings are suggestive of COVID-19. PROCEDURE: CHEST XRAY CLINICAL INDICATION: Cough, fever, wheezing, hx asthma COMPARISON: None FINDINGS: Lungs: No pneumonia. Minimal congestion noted surrounding the rohini and inthe lower lungs. Pleura: No pleural effusion or pneumothorax is seen. The heart is normal insize. Cardiothoracic ratio is approximately 13.7/28.9 cm. No acute bony abnormality. [facility], Radiant Results Inft User - 07/01/2019 3:08 PM CDTPROCEDURE: CHEST XRAY CLINICAL INDICATION: Cough, fever, wheezing, hx asthma COMPARISON: NoneFINDINGS:Lungs: No pneumonia. Minimal congestion noted surrounding the rohini and inthe lower lungs.Pleura: No pleural effusion or pneumothorax is seen. The heart is normal insize. Cardiothoracic ratio is approximately 13.7/28.9 cm.No acute bony abnormality.IMPRESSIONMini mal congestion in the lungs, consistent with nonspecificwhite loss infection/bronchitis.Discl aimer: Generally, the findings on chest imaging in COVID-19 are notspecific, and overlap with other infections, including influenza, H1N1,SARS and MERS.According to the Centers for Disease Control (CDC) and the [employer], viral testing remains the only specific method of diagnosiseven if CXR or CT findings are suggestive of COVID-19. [facility]
[2024-03-07] MEDS ORDERED: MORPHINE 4 MG/ML SYR ONE ×2 (11:13→12:45)
[2024-03-07] MEDS ORDERED: ONDANSETRON 4 MG/2 ML VIAL ONE (11:13)
[2024-03-07 11:23] LABS: Absolute Eosinophils 0.2 K/uL (0-0.5); Absolute Lymphocytes (CBC) 1.9 K/uL (0.7-4.9); Absolute Monocytes 0.8 K/uL (0.1-1.3); Absolute Neutrophil 5.3 K/uL (1.8-8.0); Basophils % 0.5 % (0-1.3); Eosinophils % 2.1 % (0-4.4); Hematocrit 38.3 % (36.0-45.0); Hemoglobin 13.2 g/dL (12.0-15.0); Lymphocytes % 23.3 % (15.3-44.8); MCH 28.5 pg (27.0-35.0); MCHC 34.3 g/dL (32.0-36.0); MPV 8.2 fL (7.6-11.3); Neutrophils % 64.1 % (41.7-73.7); Nucleated Red Blood Cells % 0.1 % (0-0); Platelets 265 thou/uL (152-406); RBC Red Blood Cell Count 4.62 M/uL (3.86-4.86); Red Cell Distribution Width 14.8 % (12.1-15.2)
[2024-03-07 11:39] LABS: Albumin 3.8 g/dL (3.4-5.0); Albumin/Globulin Ratio 0.9 (1.1-1.8); Anion Gap 10.4 mEq/L (5.0-15.0); Bilirubin Total 0.7 mg/dL (0.2-1.0); Globulin 4.4 g/dL (2.3-3.5); Potassium 3.4 mEq/L (3.5-5.1); Protein, Total 8.2 g/dL (6.4-8.2)
[2024-03-07] MEDS ORDERED: PIPERACIL/TAZO 3.375 GM VIAL IV ONE (11:41)
[2024-03-07] MEDS ORDERED: NA CHLORIDE 0.9% 100 ML ONE (11:41)
--- NOTE | 2024-03-07 11:56 | RAD REPORT ---
EXAMINATION: CT ABDOMEN AND PELVIS WITH CONTRAST CLINICAL INDICATION: Abdominal pain and vomiting TECHNIQUE: CT abdomen and pelvis was performed, after the administration of 100 cc Isovue-300.. Sagit zane and coronal reconstructions were obtained. One or more of the following dose reduction techniques were used: Automated exposure control, adjustment of the mA and kV according to patient si ze, and iterative reconstruction. Unless otherwise specified, incidental findings do not require dedicated imaging follow-up. [id number]. COMPARISON: .March 06, 2024 FINDINGS: Diverticula stem from colon. A 3 cm mass abuts the right aspect of the sigmoid colon. This mostly contains soft tissue. There is m inimal fluid and a few air bubbles.. This has mildly enlarged. This abuts the bladder. No free air. No drainable fluid filled abscess present. No other significant change since the prior exam : IMPRESSION: Mild worsening in the sigmoid diverticulitis. A 3 cm inflammatory mass is present within the mesocolo n abutting the sigmoid. It has the appearance of a phlegmonous collection consisting of inflammatory soft tissue. A few air bubbles and minimal amount of fluid is present.. This is a contai yamil perforation. No free air.
[2024-03-07] MEDS: PIPER TAZO 3.375 GM in NA CHLORIDE 0.9% 100 ML IV SCH ×2 (12:00→20:57)
--- NOTE | 2024-03-07 12:17 | EDPHYS ---
Physician Documentation [facility] Name: Judi Field Age: 58 yrs Sex: Female : 1965 Arrival Date: 03/07/2024 Time: 10:30 Bed 13 Private MD: ED Physician Doyle Villalobos HPI: 03/07 11:01 This 58 yrs old Female presents to ER via Ambulatory with complaints of Bloody Stools. ms3 11:01 This 58 yrs old Female presents to ER via Ambulatory with complaints of Abdominal pain. ms3 11:01 A 58-year-old female presents to the emergency department with complaints of bloody ms3 stools. She reports a history of failing a Cologuard test approximately three weeks ago and has been scheduled for a colonoscopy with Dr. De Leon. Prior to the appointment, she began experiencing significant abdominal pain. She reports severe pain, bladder spasms, and difficulty sitting due to intense spasms. Dr De Leon's PA called stating patient has perforated diverticulitis on CT from yesterday.. Historical: - Allergies: 10:35 Latex, Natural Rubber; ll1 - PMHx: 10:35 Hypertensive disorder; GERD; ll1 - PSHx: 10:35 section; exp. lap.; hysterectomy; Appendectomy; Cholecystectomy; ll1 - Immunization history:: Adult Immunizations. - Infectious Disease History:: Denies. - Social history:: Smoking status: Patient denies any tobacco usage or history of. ROS: 11:01 Constitutional: Negative for fever, and chills. Cardiovascular: Negative for chest ms3 pain, and palpitations. Respiratory: Negative for shortness of breath, cough, wheezing, and pleuritic chest pain, 11:01 MS/Extremity: Negative for injury and deformity, Skin: Negative for injury, rash, and discoloration, 11:01 Abdomen/GI: Positive for abdominal pain, nausea, vomiting, Exam: 11:01 Constitutional: This is a well developed, well nourished patient who is awake, alert, ms3 and in no acute distress. Cardiovascular: Regular rate and rhythm with a normal S1 and S2. No gallops, murmurs, or rubs. Normal PMI, no JVD. No pulse deficits. Respiratory: Lungs have equal breath sounds bilaterally, clear to auscultation and percussion. No rales, rhonchi or wheezes noted. No increased work of breathing, no retractions or nasal flaring. Skin: Warm, dry with normal turgor. Normal color with no rashes, no lesions, and no evidence of cellulitis. 11:01 Abdomen/GI: Inspection: abdomen appears normal, Bowel sounds: normal, Palpation: severe abdominal tenderness, in all quadrants, Vital Signs: 10:37 BP 122 / 89; Pulse 87; Resp 16; Temp 97.3; Pulse Ox 98% ; Weight 85.28 kg; Height 5 ft. ll1 6 in. ; Pain 8/10; 12:28 BP 112 / 76; Pulse 78; Resp 16 S; Pulse Ox 95% on R/A; kc6 10:37 Body Mass Index 30.34 (85.28 kg, 167.64 cm) ll1 10:37 Pain Scale: Adult ll1 MDM: 10:57 ED course: CT performed on March 06, 2024 shows acute proximal sigmoid diverticulitis ms3 with contained leak of fluid and gas along the medial directed diverticulum, measuring 2.3 x 2.1 x 1.9 cm. Patient states pain and symptoms have become worse. On exam abdomen diffusely tender. Will obtain repeat CT.. 10:58 Medical Screening Exam initiated ms3 11:01 Differential diagnosis: diverticulitis, non-specific abd pain, urinary tract infection. ms3 12:16 Data reviewed: vital signs, nurses notes, lab test result(s), radiologic studies, and ms3 as a result, I will admit patient. Consideration of Admission/Observation Patient was admitted/placed on observation. Management of patient was discussed with the following: Hospitalist: Dr Johnson- Accepts patient. Would like IVF, IV abx, and consult for Dr Maravilla placed. Lead Ios Developer: Discussed case with Dr Maravilla and he will consult on patient. Discussed case with Dr Miller and not amendable to percutaneous drainage- from CT on 03/06/2024. I considered the following discharge prescriptions or medication management in the emergency department Medications were administered in the Emergency Department. See MAR. Counseling: I had a detailed discussion with the patient and/or guardian regarding the historical points, exam findings, and any diagnostic results supporting the discharge/admit diagnosis, lab results, radiology results, the need for further work-up and treatment in the hospital. 03/07 10:35 Order name: Urinalysis w/ reflexes; Complete Time: 15:26 ms3 03/07 10:46 Order name: CBC with Diff; Complete Time: 11:53 ms3 03/07 10:46 Order name: CMP; Complete Time: 11:53 ms3 03/07 10:55 Order name: Blood Culture Adult (2) ms3 03/07 12:15 Order name: CBC with Automated Diff EDMS 03/07 12:15 Order name: CBC with Automated Diff EDMS 03/07 12:15 Order name: Comprehensive Metabolic Panel EDMS 03/07 12:15 Order name: Comprehensive Metabolic Panel EDMS 03/07 10:57 Order name: CT Abd/Pelvis - IV Contrast Only; Complete Time: 11:59 ms3 03/07 12:15 Order name: CONS Physician Consult EDMS 03/07 10:46 Order name: IV Saline Lock; Complete Time: 11:28 ms3 03/07 10:46 Order name: Labs collected and sent; Complete Time: 11:28 ms3 Administered Medications: 11:29 Drug: Ondansetron IVP 4 mg IVP once; over 2 minutes Route: IVP; Site: left antecubital; kc6 12:29 Follow up: Response: No adverse reaction; Nausea unchanged; Vomiting unchanged kc6 11:29 Drug: morphine IVP or IV 4 mg IVP once over 4 mins Route: IVP; Infused Over: 4 mins; kc6 Site: left antecubital; 12:29 Follow up: Response: No adverse reaction; Pain is unchanged, physician notified; RASS: kc6 Alert and Calm (0) 12:16 Drug: Piperacillin-Tazobactam IVPB 3.375 grams IVPB once over 60 mins; (mix in NS 100 kc6 mL) Route: IVPB; Infused Over: 60 mins; Site: left antecubital; 12:52 Follow up: Response: No adverse reaction; IV Status: Completed infusion; IV Intake: kc6 100ml 12:51 Drug: Promethazine IM 25 mg IM once Route: IM; Site: left deltoid; kc6 14:26 Follow up: Response: No adverse reaction; Nausea is decreased; Vomiting decreased kc6 12:51 Drug: morphine IVP or IV 4 mg IVP once over 4 mins Route: IVP; Infused Over: 4 mins; kc6 Site: left antecubital; 14:27 Follow up: Response: No adverse reaction; Pain is decreased; RASS: Alert and Calm (0) kc6 Disposition Summary: 03/07/24 12:16 Hospitalization Ordered Notes: Hospitalization Status: Inpatient Admission ms3 Provider: Danish Johnson ms3 Condition: Stable ms3 Problem: new ms3 Symptoms: are unchanged ms3 Bed/Room Type: Standard ms3 Location: Telemetry/MedSurg (Inpatient)(03/07/24 18:42) eb Room Assignment: 219(03/07/24 18:42) eb Diagnosis - Sigmoid Diverticulitis with perforation ms3 - Abdominal pain, Generalized ms3 Forms: - Medication Reconciliation Form ms3 - SBAR form ms3 - Leadership Thank You Letter ms3 Signatures: Dispatcher [employer] EDMS Prema Singh Lynsay, RN RN ll1 Doyle Villalobos DO DO ms3 Karma Knight RN RN kc6 Juliana Cerda RN RN kb3 Corrections: (The following items were deleted from the chart) 10:57 10:57 Abdomen Pelvis W Con+CT.RAD.BRZ ordered. EDMS EDMS 14:28 12:16 Telemetry/MedSurg (Inpatient) ms3 kb3 14:28 12:16 ms3 kb3 18:42 14:28 BR ER HOLD kb3 eb 18:42 14:28 ERHOLD- kb3 eb
--- NOTE | 2024-03-07 12:17 | ER ---
Nurse's Notes [facility] Name: Judi Field Age: 58 yrs Sex: Female : 1965 Arrival Date: 03/07/2024 Time: 10:30 Bed 13 Private MD: Diagnosis: Sigmoid Diverticulitis with perforation;Abdominal pain, Generalized Presentation: 03/07 10:37 Chief complaint: Patient states: Blood in stool off/on for 3 weeks. + abdominal pain ll1 and fever at home. Coronavirus screen: Client denies travel out of the [place] in the last 14 days. At this time, the client does not indicate any symptoms associated with coronavirus-19. Ebola Screen: Patient denies travel to an Ebola-affected area in the 21 days before illness onset. Initial Sepsis Screen: Does the patient meet any 2 criteria? No. Patient's initial sepsis screen is negative. Does the patient have a suspected source of infection? No. Patient's initial sepsis screen is negative. Risk Assessment: Do you want to hurt yourself or someone else? Patient reports no desire to harm self or others. Onset of symptoms was February 13, 2024. 10:37 Method Of Arrival: Ambulatory ll1 10:37 Acuity: GLADYS 3 ll1 Triage Assessment: 10:38 General: Appears distressed, uncomfortable, Behavior is calm, cooperative, appropriate ll1 for age. Pain: Complains of pain in abdomen Quality of pain is described as aching. GI: Reports lower abdominal pain, nausea. : Reports unable to void for 18 hours. Historical: - Allergies: 10:35 Latex, Natural Rubber; ll1 - PMHx: 10:35 Hypertensive disorder; GERD; ll1 - PSHx: 10:35 section; exp. lap.; hysterectomy; Appendectomy; Cholecystectomy; ll1 - Immunization history:: Adult Immunizations. - Infectious Disease History:: Denies. - Social history:: Smoking status: Patient denies any tobacco usage or history of. Screenin:31 [facility] ED Fall Risk Assessment (Adult) History of falling in the last 3 months, kc6 including since admission No falls in past 3 months (0 pts) Confusion or Disorientation No (0 pts) Intoxicated or Sedated No (0 pts) Impaired Gait No (0 pts) Mobility Assist Device Used No (0 pt) Altered Elimination No (0 pt) Score/Fall Risk Level 0 - 2 = Low Risk Oriented to surroundings, Maintained a safe environment, Educated pt \T\ family on fall prevention, incl call for assistance when getting out of bed. Abuse screen: Denies threats or abuse. Denies injuries from another. Nutritional screening: No deficits noted. Tuberculosis screening: No symptoms or risk factors identified. Assessment: 11:32 General: Appears in no apparent distress. uncomfortable, well groomed, well developed, kc6 Behavior is calm, cooperative, appropriate for age. Pain: Complains of pain in abdomen. Neuro: Level of Consciousness is awake, alert, obeys commands, Oriented to person, place, time, situation, Appropriate for age. Cardiovascular: Capillary refill < 3 seconds. Respiratory: Airway is patent Trachea midline Respiratory effort is even, unlabored, Respiratory pattern is regular, symmetrical. GI: Pt is actively vomiting clear fluid, Abd is soft X 4 quads Abdomen is tender to palpation X 4 quads. Reports lower abdominal pain, upper abdominal pain, bloody stool, nausea, vomiting. : Reports inability to void, since x20 hours. EENT: No signs and/or symptoms were reported regarding the EENT system. Derm: No signs and/or symptoms reported regarding the dermatologic system. Skin is intact, is healthy with good turgor, Skin is pink, warm \T\ dry. Musculoskeletal: No signs and/or symptoms reported regarding the musculoskeletal system. Circulation, motion, and sensation intact. Range of motion: intact in all extremities. 12:32 Reassessment: Patient appears in no apparent distress at this time. No changes from kc6 previously documented assessment. Patient and/or family updated on plan of care and expected duration. Pain level reassessed. Patient is alert, oriented x 3, equal unlabored respirations, skin warm/dry/pink. 13:32 Reassessment: Patient appears in no apparent distress at this time. No changes from kc6 previously documented assessment. Patient and/or family updated on plan of care and expected duration. Pain level reassessed. Patient is alert, oriented x 3, equal unlabored respirations, skin warm/dry/pink. 14:27 Reassessment: Patient appears in no apparent distress at this time. No changes from kc6 previously documented assessment. Patient and/or family updated on plan of care and expected duration. Pain level reassessed. Patient is alert, oriented x 3, equal unlabored respirations, skin warm/dry/pink. Vital Signs: 10:37 BP 122 / 89; Pulse 87; Resp 16; Temp 97.3; Pulse Ox 98% ; Weight 85.28 kg; Height 5 ft. ll1 6 in. ; Pain 8/10; 12:28 BP 112 / 76; Pulse 78; Resp 16 S; Pulse Ox 95% on R/A; kc6 10:37 Body Mass Index 30.34 (85.28 kg, 167.64 cm) ll1 10:37 Pain Scale: Adult ll1 ED Course: 10:33 Patient arrived in ED. ra3 10:35 Doyle Villalobos DO is Attending Physician. ms3 10:38 Triage completed. ll1 10:39 Arm band placed on. ll1 10:57 Karma Knight, INES is Primary Nurse. kc6 11:28 Inserted saline lock: 20 gauge in left antecubital area, using aseptic technique. Blood kc6 collected. Flushed with 10 mL NS. 11:31 Patient has correct armband on for positive identification. Bed in low position. Call kc light in reach. Side rails up X 1. Adult w/ patient. Pulse ox on. NIBP on. Door closed. Noise minimized. Lights dimmed. Pillow given. 11:33 CT Abd/Pelvis - IV Contrast Only In Process Unspecified. EDMS 12:15 Danish Johnson MD is Hospitalizing Provider. ms3 14:26 Bladder scan completed. 602 mL. kc6 14:27 No provider procedures requiring assistance completed. Patient admitted, IV remains in kc6 place. 14:59 Glass cath inserted, using sterile technique, [address], balloon inflated, to kc gravity drainage, clamped. urine specimen collected. returned yair urine. Patient tolerated well. 20:28 Provided Education on: ADMISSION INFO. dd2 Administered Medications: 11:29 Drug: Ondansetron IVP 4 mg IVP once; over 2 minutes Route: IVP; Site: left antecubital; kc 12:29 Follow up: Response: No adverse reaction; Nausea unchanged; Vomiting unchanged kc6 11:29 Drug: morphine IVP or IV 4 mg IVP once over 4 mins Route: IVP; Infused Over: 4 mins; [facility] Site: left antecubital; 12:29 Follow up: Response: No adverse reaction; Pain is unchanged, physician notified; RASS: kc6 Alert and Calm (0) 12:16 Drug: Piperacillin-Tazobactam IVPB 3.375 grams IVPB once over 60 mins; (mix in NS 100 kc6 mL) Route: IVPB; Infused Over: 60 mins; Site: left antecubital; 12:52 Follow up: Response: No adverse reaction; IV Status: Completed infusion; IV Intake: kc6 100ml 12:51 Drug: Promethazine IM 25 mg IM once Route: IM; Site: left deltoid; kc6 14:26 Follow up: Response: No adverse reaction; Nausea is decreased; Vomiting decreased kc6 12:51 Drug: morphine IVP or IV 4 mg IVP once over 4 mins Route: IVP; Infused Over: 4 mins; kc6 Site: left antecubital; 14:27 Follow up: Response: No adverse reaction; Pain is decreased; RASS: Alert and Calm (0) kc6 Medication: 14:27 VIS not applicable for this client. kc6 Intake: 12:52 IV: 100ml; Total: 100ml. kc6 Outcome: 12:16 Decision to Hospitalize by Provider. ms3 14:27 Admitted to ER Hold. Please see [facility] for further documentation. kc6 14:27 Condition: good 14:27 Instructed on the need for admit, 20:28 Patient left the ED. dd2 Signatures: Dispatcher [employer] EDSaba Zafar RN RN ll1 Doyle Villalobos DO DO ms3 Karma Knight RN RN kc6 Andressa Reynolds ra3 KUMAR OMALLEY RN RN dd2 Corrections: (The following items were deleted from the chart) 12:28 11:32 : No signs and/or symptoms were reported regarding the genitourinary system. [id number]
[2024-03-07] MEDS ORDERED: PROMETHAZINE INJ 25 MG/ML AMP ONE (12:45)
[2024-03-07] MEDS: D5 0.9 NS 1,000 ML IV SCH (13:00)
[2024-03-07] MEDS ORDERED: D5 0.9 NS 1,000 ML IV ONE (14:12)
[2024-03-07 14:59] LABS: Sqamous Epithelial <5 /HPF (None Seen); Urine Bacteria None Seen /HPF (<20); Urine Bilirubin NEGATIVE (Negative); Urine Blood Negative (Negative); Urine Clarity Clear (Clear); Urine Color Yellow (Yellow); Urine Culture Reflex Order NOT NEEDED; Urine Glucose NEGATIVE (Negative); Urine Ketones 1+ (Negative); Urine Microscopic Reflex YN ORDER UMIC; Urine Mucus Slight /HPF (None Seen); Urine Nitrite NEGATIVE (Negative); Urine Protein TRACE (Negative); Urine Urobilinogen Normal (Normal); Urine WBC <5 /HPF (<5)
[2024-03-07 15:06] LABS: Specific Gravity > 1.030 (1.005-1.030)
[2024-03-07 15:45] VITALS: BMI 30.4
[2024-03-07] MEDS: MORPHINE 2 MG/ML SYR IV PRN (20:56)
[2024-03-08 04:44] LABS: Absolute Eosinophils 0.3 K/uL (0-0.5); Absolute Lymphocytes (CBC) 1.6 K/uL (0.7-4.9); Absolute Monocytes 0.9 K/uL (0.1-1.3); Absolute Neutrophil 5.4 K/uL (1.8-8.0); Basophils % 0.5 % (0-1.3); Eosinophils % 3.2 % (0-4.4); Hematocrit 35.6 % (36.0-45.0); Hemoglobin 12.1 g/dL (12.0-15.0); Lymphocytes % 19.7 % (15.3-44.8); MCH 28.4 pg (27.0-35.0); MCV 83.5 fL (80-100); MPV 8.3 fL (7.6-11.3); Monocytes % 10.5 % (3.3-12.3); Neutrophils % 66.1 % (41.7-73.7); Platelets 247 thou/uL (152-406); RBC Red Blood Cell Count 4.26 M/uL (3.86-4.86); Red Cell Distribution Width 14.8 % (12.1-15.2)
[2024-03-08 05:04] LABS: Albumin 3.2 g/dL (3.4-5.0); Albumin/Globulin Ratio 0.8 (1.1-1.8); Bilirubin Total 0.6 mg/dL (0.2-1.0); Globulin 3.9 g/dL (2.3-3.5); Protein, Total 7.1 g/dL (6.4-8.2)
[2024-03-08] MEDS ORDERED: ALBUTEROL 2.5 MG/3 ML NEB SOL NEB PRN (08:07)
[2024-03-08] MEDS ORDERED: SODIUM CHLORIDE 0.9% 10ML INJ IV PRN (08:07)
[2024-03-08] MEDS: ENOXAPARIN 40 MG/0.4 ML SQ SCH (08:56)
[2024-03-08] MEDS: PANTOPRAZOLE 40 MG INJ IVP SCH (08:57)
--- NOTE | 2024-03-08 12:01 | HP ---
Date of Admission: 03/07/2024 Chief Complaint: Abdominal pain. History Of Present Illness: This is a 58-year-old female patient who started to have lower abdominal pain all across her lower abdomen on March 04, 2024. The patient reported that her pain was mary nuous associated with fever and chills and some constipation. She saw Dr. De Leon for this abdomina l pain and he ordered CT scan of abdomen, which was done on 03/06/2024 showing acute diverticulitis w ith contained perforation and yesterday patient was contacted by Dr. De Leon's office to evaluate th e CAT scan result and by that time the patient already had shown up to our emergency room because of worsening of her abdominal pain. The patient had routine blood work and repeat CAT scan of abdomen a nd pelvis, which shows slight worsening of this contained perforation, but no free air and no drainab le abscess as per the ER physician's discussion with Interventional Radiology at our hospital. I was contacted requesting admission to the hospital and surgeon on-call, Dr. Maravilla, was consulted who a lready evaluated the patient yesterday. In the emergency room, patient informed nurse yesterday even ing that she had not urinated all day, so Glass catheter was placed after doing bladder scan, which h ad shown approximately 600 cc of urine, so catheter was placed. This morning when I saw the patient, she was lying in bed. Overall, pain is better compared to yesterday. Allergies: LATEX AND THE PATIENT HAD ANAPHYLACTIC REACTION TO LATEX. Medications: Albuterol inhaler 2 puffs every 4 hours as needed for shortness of breath. Albuterol a nd Atrovent nebulizer treatment every 4 hours as needed for shortness of breath. Zyrtec 10 mg daily as needed for allergies, dicyclomine 10 mg every 8 hours as needed for stomach cramps, escitalopram 1 0 mg daily, estrogen transdermal patch, Advair 2 puffs 2 times a day, gabapentin 300 mg at bedtime, l isinopril/HCTZ 20/12.5 one tablet daily, montelukast 10 mg daily, omeprazole 40 mg daily. Past Medical History: Significant for mild persistent asthma, hypertension, mixed hyperlipidemia, ga stroesophageal reflux disease, anemia, nonalcoholic fatty liver disease, postherpetic neuropathy, anx iety, allergic rhinitis. It is important to note that the patient has not had colonoscopy or mammogr am due to her refusal to have any such testing. Significant for diverticulosis, irritable bowel synd sami, mitral valve prolapse, gastroesophageal reflux disease, compression fracture of L5 spine in 201 6 that resulted in right footdrop and PTSD. Past Surgical History: Removal of wisdom teeth, umbilical hernia repair, cholecystectomy, appendecto my, , hysterectomy with bilateral salpingo-oophorectomy, and right leg surgery. Family History: Father , had kidney cancer and hypertension, dementia. Brother had h ypertension. Sister committed suicide. Social History: Negative for smoking. Use of alcohol, occasional. Physical Examination: Vital Signs: This morning, temperature 97.7, pulse 79, respiratory rate 18, blood pressure 117/95, o xygen saturation 95% on room air. Height 5 feet 6 inches, weight 189 pounds. General: Awake, alert, oriented, not in distress. HEENT: Head atraumatic, normocephalic. Conjunctivae nonerythematous. Sclerae white. Mouth, no thr ush or edema noted. Ears/Nose, no mass, lesion, discharge noted. Neck: Supple. No JVD, lymph nodes, bruit, thyromegaly noted. Lungs: Bilateral good equal air entry. Clear to auscultation. No rhonchi. No rales. Heart: Normal heart sounds, no murmur or gallop. Abdomen: Soft. No distention. No guarding. No rigidity. No rebound tenderness. The patient does have significant tenderness all across lower abdomen. Bowel sounds normal. Extremities: No leg edema. No calf tenderness. Skin: No rash, ulcer, cellulitis. Lymphatics: No lymph node enlargement in neck, supraclavicular, infraclavicular region. Neuro: No focal neurological deficit. Chest: Unremarkable. External Genitalia: Deferred. Rectal: Deferred. Laboratory Data: Yesterday, WBC 8.2, hemoglobin 13.2, platelets 265. Today, WBC 8.2, hemoglobin 12. 1, platelets 247. Her chemistry yesterday, sodium 135, potassium 3.4, chloride 101, bicarb 27, BUN 1 6, creatinine 0.78, glucose 107. This morning, sodium 136, potassium 4, chloride 101, bicarb 29, BUN 19, creatinine 0.74, glucose 117. Liver function tests are unremarkable. Urinalysis is negative ex cept 5-10 rbc's. CAT scan of abdomen and pelvis with contrast done in the emergency room shows mild worsening of sigmoid diverticulitis, has 3 cm inflammatory mass present within the mesocolon abutting the sigmoid. It has the appearance of phlegmonous collection consisting of inflammatory soft tissue , few air bubbles, and minimal amount of fluid is present. This is contained perforation. No free a ir. The CT scan from 03/06/2024 was reported as acute proximal sigmoid diverticulitis with contained leak of fluid and gas along the medially directed diverticulum measuring 2.3 x 1.9 cm. Impression: 1. Acute perforated sigmoid diverticulitis. 2. Hypertension. 3. Mixed hyperlipidemia. 4. Mild persistent asthma. 5. Gastroesophageal reflux disease. 6. Known alcoholic fatty liver disease. 7. Anxiety. 8. Allergic rhinitis. 9. Posttraumatic stress disorder. 10. Mitral valve prolapse. Plan: We will go ahead and admit the patient to hospital for further evaluation and management of th is problem. The patient is appropriate for inpatient and [facility] After she was evaluated and admitted to the hospital yesterday from emergency room, surgeon [facility], Dr. Maravilla, was consulted. He evaluated the patient yesterday and I have called and discussed d etails with him. He will evaluate the patient again today and after that he will decide about starti ng her on clear liquid diet. The patient is having extreme dry mouth and after getting okay from Dr. Maravilla, I have ordered few ice chips on as needed basis for dry mouth. Ambulation was encouraged. We will go ahead and continue IV antibiotic, which is Zosyn that was started in the emergency room. DVT prophylaxis will be given using Lovenox. Continue IV fluid and pain medication and nausea medic ation per order. The patient had urinary retention in the emergency room. Glass catheter was placed . Her urine is little concentrated appearing. We will go ahead and remove Glass catheter today and hopefully, patient should not have any more retention problem, but if she does, we will consider repl acing the Glass catheter again. 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 The patient has not h ad colonoscopy for cancer screening and it is very important for her to go ahead and get that in near future as outpatient, probably 4-6 weeks down the line after she recovers from this. For asthma, I have ordered her nebulizer treatment as needed and no need for further intervention. For hypertensio n, we will monitor her blood pressure and at appropriate time, we will consider to restart her blood pressure medications. No need for further intervention on it at this time. For hyperlipidemia, no n eed for further intervention. For anxiety, she takes as escitalopram and we will consider to restart that starting tomorrow. Total time spent was 85 minutes including review of CAT scan from 03/06 and 03/07/2024, review of [facility] r[facility] room visit record, communication with ER physician, communication with general surgeon, review of last office visit record from 01/22/2024, and performing today's evaluation and management. I wi ll see her tomorrow for followup. KATHLEEN/MODL Voice ID: [id number]
--- NOTE | 2024-03-08 13:36 | CON ---
Date of Consultation: 03/07/2024 Brief History Of Present Illness: The patient is a 58-year-old female who presents with complaint of abdominal pain in the left lower quadrant pubic area associated with some bloody stool on occasion. She states she has a history of having a colonoscopy but it was greater than 10 years ago and recent ly approximately 3 weeks ago, she failed a Cologuard test which was recommended. She saw Dr. Tanya allred who arranged for her to have a colonoscopy. However, with the worsening pain, he had recommended a CT scan prior to intervention and colonoscopy. However, she had worsening of pain, ultimately had a CT scan which showed evidence of perforated diverticulitis, and as such, she came to the emergency r oom with the above-stated complaints. She does have a history of diverticulosis by her description i n the past. Past Medical History: Significant for diverticulosis, not diverticulitis. She has had hypertension, GERD. Allergies: TO LATEX AND NATURAL RUBBER. Past Surgical History: Includes , exploratory laparotomy, hysterectomy, appendectomy, franca cystectomy. Social History: She denies smoking, alcohol, recreational drug use. Review of Systems: Ten-point review of systems other than HPI, she denies. Physical Examination: Vital Signs: At the time of my examination, her vital signs were blood pressure 111/73, pulse 77, re spiratory rate 17, temperature 98.3, SpO2 96% on room air. General: She is awake, alert, and oriented. Psychiatric: She is appropriate and conversive. HEENT: Normocephalic. Sclerae anicteric. Mucous membranes are moist. Oropharynx clear. Neck: Supple without JVD. Chest: Normal expansion and excursion. Cardiovascular: Regular rate and rhythm. Pulmonary: Clear to auscultation bilaterally. Abdomen: Soft with tenderness to palpation worse in the suprapubic area and left lower quadrant. Ho wever, she does have tenderness also on the right side of the abdomen. However, the rebound is evide nt when you palpate and release more so, she feels tenderness in the suprapubic area to the left of m idline. There is mild voluntary guarding. No involuntary guarding and she moves around quite well, sitting up without pain or issue and rotates position in bed easily and sits up without pain. Extremities: No clubbing, cyanosis, or edema. Skin: Warm and dry. Laboratory Exam: White blood cell count 8.2, hemoglobin 13.2, hematocrit of 38.3, platelet count was 265, neutrophils are 64%. Her sodium 138, potassium 3.4, chloride 101, carbon dioxide 27, BUN is 16 , creatinine 0.7, glucose was 107, T bili was 0.7, AST 17, ALT 24, alkaline phosphatase is 74. UA sh owed 5-10 white blood cells, trace protein, otherwise negative. She had imaging performed, which inc luded a CT scan of the abdomen and pelvis which was officially read on 03/07/2024 as a 3 cm mass abut s the right aspect of the sigmoid colon, this mostly contained soft tissue. There was minimal fluid and few air bubbles. This has mildly enlarged and abuts the bladder. No free air. No drainable flu id filled abscess present. The official impression is mild worsening of the sigmoid diverticulitis. A 3 cm inflammatory mass is present with the mesocolon abutting the sigmoid colon and it has appeara nce of phlegmonous collection consisting of inflammatory soft tissue, few air bubbles, and minimal am ount of fluid is present. This is a contained perforation. No free air. Assessment And Plan: This is a 58-year-old woman who presents with signs and symptoms of diverticuli tis with perforation which is contained currently. 1. IV fluid hydration. 2. Antibiotic coverage. 3. Serial abdominal exams. 4. The patient may require repeat imaging as the collection is not amenable to percutaneous drainage. 5. I have highly recommended the patient to follow up with Dr. De Leon to have a colonoscopy as this has an inflammatory appearance and with a positive Cologuard, this could be a neoplastic process mas querading as diverticulitis, and as such, after her symptoms have resolved and she has been evaluated by Dr. De Leon, I have recommended colonoscopy in a relatively close interval to ensure there is no malignancy or neoplastic process in this area. The patient displayed understanding of the above-sta abraham plan and agrees to proceed as indicated. Thank you for this interesting consult. SKYLER/ANA MARÍA Voice ID: [id number] Report ID: [id number]
[2024-03-08] MEDS: HYDROCODONE/APAP 5/325 MG TAB PO PRN (14:51)
[2024-03-08] MEDS ORDERED: FLU (Fluarix Triv) TS24-25(6MOS UP)/PF 45 MCG/0.5 ML Syringe IM ONE (16:30)
[2024-03-09 05:04] LABS: Absolute Eosinophils 0.2 K/uL (0-0.5); Absolute Monocytes 0.7 K/uL (0.1-1.3); Basophils % 0.6 % (0-1.3); Eosinophils % 3.4 % (0-4.4); Hematocrit 33.2 % (36.0-45.0); Hemoglobin 11.4 g/dL (12.0-15.0); Lymphocytes % 33.5 % (15.3-44.8); MCH 28.5 pg (27.0-35.0); MCHC 34.2 g/dL (32.0-36.0); MCV 83.4 fL (80-100); MPV 7.9 fL (7.6-11.3); Monocytes % 12.2 % (3.3-12.3); Neutrophils % 50.3 % (41.7-73.7); Platelets 234 thou/uL (152-406); RBC Red Blood Cell Count 3.98 M/uL (3.86-4.86); Red Cell Distribution Width 14.1 % (12.1-15.2)
[2024-03-09 05:38] LABS: Anion Gap 4.8 mEq/L (5.0-15.0); Magnesium 2.3 mg/dL (1.6-2.4); Potassium 3.8 mEq/L (3.5-5.1); Thyroid Stimulating Hormone 3.51 uIU/mL (0.358-3.740)
[2024-03-09] MEDS: ESCITALOPRAM 20 MG TAB PO SCH (08:37)
[2024-03-09] MEDS: DOCUSATE NA 100 MG CAP PO SCH (08:38)
[2024-03-09] MEDS: D5 0.9 NS 1,000 ML IV SCH (14:02)
--- NOTE | 2024-03-09 14:07 | PN ---
Date of Progress Note: 03/09/2024 Subjective: Patient was seen this morning for followup. She still continues to have lower abdominal pain, but pain medication helps and overall pain is less compared to how it was when she first came in. No nausea or vomiting overnight. No bowel movement since she was admitted to the hospital. The patient is requesting some stool softener and her escitalopram medication to be restarted. She did ambulate well yesterday. Objective: Vital Signs: Reviewed. HEENT: Unremarkable. Lungs: Clear to auscultation. No wheezing. No rales. Heart: Sounds normal. Abdomen: Soft. There is no distention. No hepatosplenomegaly. No bruit. Bowel sounds normal. Pr esence of tenderness all across lower abdomen, more so in the right lower quadrant and left lower lydia drant. No rebound tenderness. Extremities: No leg edema. Laboratory Data: WBC 5.9, hemoglobin 11.4, platelets 234. Sodium 136, potassium 3.8, chloride 105, bicarb 30, BUN 15, creatinine 0.64, glucose 95, magnesium 2.3. Triglycerides 293, LDL 113, total cho lesterol 200, HDL 28. TSH 3.510. Impression: 1. Acute sigmoid diverticulitis with perforation. 2. Anemia, unspecified. 3. Hyperlipidemia. 4. Hypertension. 5. Anxiety. Plan: We will go ahead and restart her escitalopram 10 mg daily for constipation. We will start sto ol softener Colace 100 mg twice a day. Continue current Zosyn for diverticulitis and continue Loveno x. Encouraged patient to ambulate. Continue current pain medication. We will continue to follow [facility] Dr. Maravilla, and hopefully if okay with him today, we will start her on clear liquid diet. Reduce IV fluid to 50 cc/hour, and I did advise the patient that on an outpatient basis, we should start he r on statin therapy for her high cholesterol and she is willing to try it and I informed her that she absolutely will need to get blood work done as suggested on an outpatient basis once we start choles terol medication for monitoring and otherwise I will not be able to continue that medication and she understands and realizes that I will see her tomorrow for followup. KATHLEEN/MODL Voice ID: [id number] Report ID: [id number]
[2024-03-10] MEDS: D5 0.9 NS 1,000 ML IV SCH (08:22)
[2024-03-11 00:24] VITALS: O2SAT 97
[2024-03-11 04:35] LABS: Absolute Eosinophils 0.3 K/uL (0-0.5); Absolute Lymphocytes (CBC) 1.8 K/uL (0.7-4.9); Absolute Monocytes 0.6 K/uL (0.1-1.3); Absolute Neutrophil 2.5 K/uL (1.8-8.0); Basophils % 0.8 % (0-1.3); Eosinophils % 5.4 % (0-4.4); Hematocrit 33.1 % (36.0-45.0); Hemoglobin 11.2 g/dL (12.0-15.0); Lymphocytes % 34.3 % (15.3-44.8); MCH 28.3 pg (27.0-35.0); MCHC 33.9 g/dL (32.0-36.0); MCV 83.6 fL (80-100); MPV 7.6 fL (7.6-11.3); Monocytes % 11.4 % (3.3-12.3); Neutrophils % 48.1 % (41.7-73.7); Nucleated Red Blood Cells % 0.1 % (0-0); Platelets 253 thou/uL (152-406); RBC Red Blood Cell Count 3.96 M/uL (3.86-4.86); Red Cell Distribution Width 14.4 % (12.1-15.2)
[2024-03-11 04:50] LABS: Anion Gap 6.7 mEq/L (5.0-15.0); Magnesium 2.1 mg/dL (1.6-2.4); Potassium 3.7 mEq/L (3.5-5.1)
[2024-03-11] MEDS: ONDANSETRON 4 MG/2 ML VIAL IV PRN (07:37)
--- NOTE | 2024-03-11 09:10 | RAD REPORT ---
EXAMINATION: CT Abdomen Pelvis W Contrast CLINICAL INDICATION: Female, 58 years old. perforated diverticulitis TECHNIQUE: CT abdomen and pelvis was performed, after the administration of IV contrast, as per [facility] protocol. Axial, sagittal and coronal reconstructions were obtained. One or more of the following dose reduction techniques were used: Automated exposure control, adjustment of the mA and k V according to patient size, and iterative reconstruction. Unless otherwise specified, incidental findings do not require dedicated imaging follow-up. COMPARISON: 03/07/2024 FINDINGS: LOWER CHEST: The visualized lung bases are clear. LIVER: Mild fatty liver is present. No focal lesion or biliary dilataion is seen. BILIARY SYSTEM: Status post cholecystectomy. SPLEEN: Normal size. No focal lesion. PANCREAS: No mass, ductal dilation, or david-pancreatic fluid. ADRENALS: Normal; no mass. KIDNEYS: Normal size and contour. No hydronephrosis. URINARY BLADDER: Unremarkable. GASTROINTESTINAL TRACT: Mild residual inflammatory fat stranding along the adventitia of the proximal sigmoid colon, see series 603 image 40, suggesting response to treatment, with no extraluminal fluid collections or gas. Other multifocal wall prominence throughout the transverse through sigmoid colon, with moderate diverticulosis. Findings may relate to sequelae of prior attacks of diverticulitis. Suboptimal distention limits evaluation. No evidence of free air, significant intra-a bdominal free fluid, bowel obstruction or abscess. APPENDIX: Appendix not visualized, but no inflammatory changes in region of appendix. LYMPH NODES: No lymphadenopathy. MUSCULOSKELETAL: No acute or suspicious osseous abnormality. ADDITIONAL FINDINGS: None. IMPRESSION: Interval improvement with mild residual inflammatory changes along the proximal sigmoid colon, where acute diverticulitis was noted. Other multifocal areas of wall prominence throughout the transverse to sigmoid colon, may relate to s equelae of prior attacks of diverticulitis, although evaluation is suboptimal given inadequate colonic lumen distention. Please correlate clinically, and with findings of screening colonoscopy. Mild diffuse hepatic steatosis.
--- NOTE | 2024-03-11 13:31 | P.PN ---
Subjective Date of Service: 03/11/24 Subjective: Improving (Patient was tolerating clear liquid diet without significant issue, passing gas, significant improvement overall of her pain and symptoms.) Physical Examination - Vital Signs Temperature: 98.2 F Blood Pressure: 126/81 Pulse: 67 Respirations: 16 Pulse Ox (%): 97 - Physical Exam General: Alert, In no apparent distress, Oriented x3, Cooperative Gastrointestinal: Other (Soft mild left lower quadrant tenderness to palpation, improved from prior exams. No rebound or guarding no focal peritonitis, no other acute findings at this time.) Assessment And Plan - Current Problems (Diagnosis) (1) Diverticulitis of colon with perforation Current Visit: Yes Status: Acute Plan: 58-year-old woman with diverticulitis likely of the sigmoid colon with perforation. -Continue antibiotic treatment is currently prescribed as she has significant symptomatic improvement. -Advance diet slowly. -Serial abdominal exams. -Continue medical management. -Patient will need colonoscopy with Dr. Sellers who is her aluminum polisher after a healing time is established and per recommendations as she has not had one recently and is due for a colonoscopy at this point to ensure no neoplastic process exists. I have discussed this in detail with the patient who agrees to proceed with colonoscopy after follow-up with Dr. Sellers.
--- NOTE | 2024-03-11 14:23 | PN ---
Date of Progress Note: 03/10/2024 Subjective: The patient was seen this morning for followup. She was lying in bed, not in any distre ss. Still has lower abdominal pain, but intensity of pain is improving. She did have loose bowel mo vement 2 to 3 times yesterday. No nausea. No vomiting. She is tolerating clear liquid diet well an d is ambulating well. Objective: Vital Signs: Reviewed. HEENT: Unremarkable. Lungs: Clear to auscultation. Heart: Sounds normal. Abdomen: Soft. Bowel sounds normoactive. Presence of tenderness in the lower abdomen, which is sli ghtly better today than yesterday. No rebound tenderness. No abdominal distention. Extremities: No leg edema. Impression: 1. Acute perforated sigmoid diverticulitis. 2. Hypertension. 3. Hyperlipidemia. Plan: We will go ahead and continue current antibiotics. Reduce IV fluid. Continue current clear l iquid diet. We will repeat blood work, and repeat CAT scan of the abdomen and pelvis with contrast t omorrow. Depending on that, we will decide if we can advance her diet tomorrow or not. Details and plan of treatment discussed with the patient. The patient was encouraged to ambulate. KATHLEEN/MODL Voice ID: [id number] Report ID: [id number]
--- NOTE | 2024-03-11 20:24 | PN ---
Date of Progress Note: 03/11/2024 Subjective: The patient was seen this morning for followup. Her abdominal pain is improving on a da y-to-day basis. She still has pain, but overall it is less intense and she goes on for longer time w ithout having to take pain medication. No nausea. No vomiting. Objective: Vital Signs: Reviewed. HEENT: Unremarkable. Lungs: Clear to auscultation. Heart: Sounds normal. Abdomen: Soft. Bowel sounds normal. No guarding, rigidity. No rebound tenderness. The patient do es have tenderness in the lower abdomen, but overall it is better today than yesterday. Laboratory Data: CT scan of abdomen and pelvis done today shows improvement in perforated sigmoid di verticulitis changes. No worsening or no new concerning findings. No evidence of any abscess or bobby e air. WBC 5.2, hemoglobin 11.2, platelets 253. Sodium 140, potassium 3.7, chloride 109, bicarb 28, BUN 6, creatinine 0.69, glucose 105. Magnesium 2.1. Impression: 1. Acute perforated diverticulitis. 2. Hypertension. 3. Hyperlipidemia. 4. Anemia, unspecified. Plan: We will go ahead and continue current antibiotics. Ambulation was encouraged. We will advanc e diet to soft diet today. Plan is to possibly discharge her to go home tomorrow. I will see her tomorrow morning for followup. KATHLEEN/MODL Voice ID: [id number] Report ID: [id number]
[2024-03-12 09:17] VITALS: BP 131/69; TEMP 98.3
--- NOTE | 2024-03-12 20:50 | DS ---
Date of Discharge: 03/12/2024 Disposition: Discharged to go home. Physical Examination: HEENT: Unremarkable. Lungs: Clear to auscultation. Heart: Sounds normal. Abdomen: Soft. Bowel sounds normal. No guarding, rigidity, distention. No rebound tenderness. Th e patient has very mild tenderness all across lower abdomen, which is significantly better than how s he was when she first came into the hospital. There is no rebound tenderness. Extremities: No leg edema. Hospital Course: This is a 58-year-old female patient, who came into emergency room with complaints of abdominal pain. After she was evaluated in ER, she was admitted to hospital with acute perforated diverticulitis. Her perforation was contained. There was no evidence of free air under the diaphra gm. After she was evaluated in ER, I was contacted requesting admission to hospital and general surg zena, Dr. Maravilla who was on-call was consulted. Conservative management was provided to her and the patient did not require any surgical intervention and with conservative management which included IV fluid and IV antibiotic which was Zosyn and pain medication, her condition improved. Initially, the patient was n.p.o. and subsequently we started her on clear liquid diet about couple of days ago and she tolerated that very well and as of yesterday, we started her on soft diet. We did repeat another CAT scan of abdomen and pelvis yesterday, which showed improvement in the original findings of perfo rated diverticulitis. So with that, we decided to go ahead and advance the diet. The patient has be en ambulating very well. She will schedule her colonoscopy with Dr. De Leon to be done on outpatien t basis and I have informed her to schedule colonoscopy for sometime next month, but not this month. I have instructed her to come see me for followup next week and to follow up with Dr. Moises davis after next. The patient's cholesterol was elevated as we noticed and I suggested her to start taki ng statin therapy which she is agreeable, and I have informed her that she should get blood work for monitoring of cholesterol as well as for monitoring of the side effect of medication on a regular bas is as per instruction and if she does not do that, then we will not be able to continue therapy and s he understands that. Today, she was discharged to go home in improved and stable condition with foll owing discharge medications and instructions. Final Diagnoses: 1. Acute perforated sigmoid diverticulitis. 2. Hypertension. 3. Mixed hyperlipidemia. 4. Mild persistent asthma. 5. Gastroesophageal reflux disease. 6. Non-alcoholic fatty liver disease. 7. Anxiety. 8. Allergic rhinitis. 9. Posttraumatic stress disorder. 10. Mitral valve prolapse. Discharge Medications And Instructions: 1. Continue all prior home medications. 2. Atorvastatin 40 mg take 1 tablet by mouth daily at bedtime. 3. Augmentin 875 mg take 1 tablet by mouth 2 times a day for 14 days, take it with food. 4. Diet: Soft diet and I have instructed her to stay on soft diet this week and as of next week, she can slowly advance her diet. The patient was also instructed by me that she should avoid eating kelli d like popcorn, nuts, tomato, strawberries, etc. The patient was also advised to start taking Metamu cil fiber gummies, take 3 fiber gummies daily and she should start this once her current diarrhea pro blem resolves. 5. Drink 60 to 80 ounces water daily. 6. Follow up at my office next week and follow up with Dr. De Leon in 2 weeks. Laboratory Data: Upon admission, sodium 135, potassium 3.4, chloride 101, bicarb 27, BUN 16, creatin ine 0.78, glucose 107. Liver function tests unremarkable and yesterday sodium 140, potassium 3.7, ch loride 109, bicarb 28, BUN 6, creatinine 0.69, glucose 105, magnesium 2.1. Her triglyceride was 293, total cholesterol 200, LDL 113, HDL 28, TSH 3.510. For her CBC upon admission, WBC 8.2, hemoglobin 13.2, platelets 265. Yesterday, WBC 5.2, hemoglobin 11.2, platelets 253. Total time spent today was 40 minutes. KATHLEEN/MODL Voice ID: [id number] Report ID: [id number]
== END 2024-03-12 10:00 | disposition home or self-care (01) | DRG 379 ==
LOC: ER 10:30 → ERHOLD 12:11 → 2ND 19:26
PROVIDERS: ADMIT Internal Medicine; ATTEND Internal Medicine
PROC: 0T9B70Z Drainage of Bladder with Drainage Device, Via Natural or Artificial Opening (ICD-10-PCS; principal; 2024-03-07)
DX: K57.21 Diverticulitis of large intestine with perforation and abscess with bleeding (principal); I10 Essential (primary) hypertension; E78.2 Mixed hyperlipidemia; K59.00 Constipation, unspecified; K58.9 Irritable bowel syndrome, unspecified; F41.9 Anxiety disorder, unspecified; J45.30 Mild persistent asthma, uncomplicated; D64.9 Anemia, unspecified; I34.1 Nonrheumatic mitral (valve) prolapse; K70.0 Alcoholic fatty liver; F43.10 Post-traumatic stress disorder, unspecified; K21.9 Gastro-esophageal reflux disease without esophagitis; R33.9 Retention of urine, unspecified; Z90.49 Acquired absence of other specified parts of digestive tract; Z91.040 Latex allergy status; Z90.710 Acquired absence of both cervix and uterus
CPT/HCPCS: 36415; 51702; 74177; 80048; 80053; 80061; 81001; 83735; 84443; 85025; 87040; 94010; 96365; 96372; 96375; 99285; J1650; J2270; J2405; J2470; J2543; J2550; J7042; Q9967

== ENCOUNTER 2024-04-17 16:57 | Emergency (ER) | payer OTHER ==
--- OUTSIDE RECORDS SUMMARY | 2024-04-17 16:59 | XMS REPORT | Continuity of Care Document ---
Author Name Unknown Address [address] [place] [address] [facility] Address [address] [place] [address] Care Team Providers Care Vice President Of Compliance Name Role Phone HARJINDER SCHULTZ Primary Care Physician Unav Masood Richardson MD Attending Clinician [phone] MASOOD REICH Attending Clinician UnavailHalina Arguello RN Attending Clinician Unavailable LORE VAN Attending Clinician Unavailable Lore Pierre Attending Clinician [phone] [facility] Attending Clinician UnaMerari Dewitt MD Attending Clinician Mily Joaquin MD Attending Clinician [phone] Beatrice Elena RN Attending Clinician Unava ilable UNKNOWN, ATTENDING Attending Clinician Unavailab JOE Ham [...] Rectal bleeding Disease Active 2014-02 00:00: 00 [facility] Essential hypertensi on Essential hypertensi on Disease Active 2014-02 00:00: 00 [facility] Allergies, Adverse Reactions, Alerts Allergy Name Allergy Type Status Severity Reaction(s) Onset Date Inactive Date Treating Clinician Comments Source Predniso ne Propensi ty to adverse reaction s Active Other - See comments 2018-02 00:00: 00 Adrenal crisis per patient [facility] PREDNISO NE DRUG INGREDI Active Med Other-Cmnt 2018-02 00:00: 00 [facility] Latex Propensi ty to adverse reaction s Active Anaphylaxis 2014-02 00:00: 00 [facility] LATEX DRUG INGREDI Active Anaphylaxis 2014-02 00:00: 00 [facility] Social History Social Habit Start Date Stop Date Quantity Comments Source Sex Assigned At [facility] Exposure to SARS-CoV-2 (event) Not sure [facility] Tobacco use and exposure 2019-07-01 00:00:00 2019-07-01 00:00:00 Never used [facility] Smoking Status Start Date Stop Date Source Never smoker [facility] Medications Ordered Medication Name Filled Medication Name Start Date Stop Date Current Medication? Ordering Clinician Indication Dosage Frequency Signature (SIG) Comments Components Source iohexol (OMNIPAQUE 350 BULK-150 mL) injection 120 mL 02-19 17:15: 00 02-19 16:46 :00 No 120mL 120 mL, Intravenou s, ONCE, 1 dose, 02/20/20 at 1115, Routine [facility] azithromyci n 250 mg tablet 06-30 00:00: 00 Yes [facility] bromphenira mine-pseudo ephedrine-D M (BROMFED DM) 2-30-10 mg/5 mL syrup 06-30 00:00: 00 07-11 04:59 :00 No [id number] 5mL Take 5 mL by mouth 4 (four) times daily as needed for Congestion /Allergies or Cough for up to 10 days. [facility] lisinopril- hydrochloro thiazide 20-12.5 mg per tablet 05-20 00:00: 00 Yes [facility] omeprazole 40 mg capsule 415 00:00: 00 Yes [facility] acetaminoph en-codeine (TYLENOL-CO DEINE #3) 300-30 mg tablet 2018-02 0 00:00: 00 Yes [id number] 1{tbl} Take 1 tablet by mouth every 6 (six) hours as needed for Pain (scale 4-6). [facility] metroNIDAZO LE 500 mg tablet 2018-02 00:00: 00 Yes [id number] 500mg Take 1 tablet by mouth 2 (two) times daily. [facility] ondansetron 4 mg disintegrat ing tablet 2018-02 00:00: 00 Yes [id number] 4mg Take 1 tablet by mouth every 8 (eight) hours as needed for Nausea and Vomiting (N/V). [facility] ciprofloxac in HCl 500 mg tablet 2018-02 00:00: 00 Yes [id number] 500mg Take 1 tablet by mouth 2 (two) times daily. [facility] Vital Signs Vital Name Observation Time Observation Value Comments S ource Systolic blood pressure 2019-07-01 18:55:00 105 mm[Hg] [facility] Diastolic blood pressure 2019-07-01 18:55:00 73 mm[Hg] [facility] Heart rate 2019-07-01 18:55:00 97 /min [facility] Body temperature 2019-07-01 18:55:00 36.56 Jennifer [facility] Respiratory rate 2019-07-01 18:55:00 18 /min [facility] Body weight 2019-07-01 18:55:00 79.379 kg [facility] BMI 2019-07-01 18:55:00 28.25 kg/m2 [facility] Oxygen saturation in Arterial blood by Pulse oximetry 2019-07-01 18:55:00 96 /min [facility] Systolic blood pressure 2019-07-01 18:55:00 105 mm[Hg] [facility] Diastolic blood pressure 2019-07-01 18:55:00 73 mm[Hg] [facility] Heart rate 2019-07-01 18:55:00 97 /min [facility] Body temperature 2019-07-01 18:55:00 36.56 Jennifer [facility] Respiratory rate 2019-07-01 18:55:00 18 /min [facility] Body weight 2019-07-01 18:55:00 79.379 kg [facility] BMI 2019-07-01 18:55:00 28.25 kg/m2 [facility] Oxygen saturation in Arterial blood by Pulse oximetry 2019-07-01 18:55:00 96 /min [facility] Procedures Procedure Date / Time Performed Performing Clinician Source CT ABDOMEN PELVIS W CONTRAST 2020-02-20 17:02:14 Masood Reich [facility] NO SHOW OR MISSED APPOINTMENT POLICY ACKNOWLEDGEMENT 2020-02-20 15:23:39 Doctor Unassigned, Maramec [facility] CONSENT/REFUSAL FOR DIAGNOSIS AND TREATMENT 2020-02-20 15:23:00 Doctor Unassigned, Maramec [facility] PATIENT FINANCIAL POLICY 2020-02-20 15:22:35 Doctor Unassigned, Maramec [facility] XR CHEST 2 VW COVID 2019-07-01 20:05:14 Lore Van [facility] Encounters Start Date/Time End Date/Time Encounter Type Admission Type Attending Clinicians Care Facility Care Department Encounter ID Source 2020-02-20 09:20:00 2020-02-20 23:59:00 Hospital Encounter AlissajorgeMasood [facility] [id number] 2020-02-20 09:20:00 2020-02-20 23:59:00 Hospital Encounter Tony Reichatha [facility] [id number] [facility] 2020-02-20 00:00:00 2020-02-20 00:00:00 Outpatient R MASOOD REICH [facility] [id number] [facility] 2019-07-02 00:00:00 2019-07-02 00:00:00 Telephone [facility] [id number] 2019-07-02 00:00:00 2019-07-02 00:00:00 Telephone [facility] [id number] [facility] 2019-07-01 14:40:10 2019-07-01 23:59:00 Outpatient R LORE VAN [facility] [id number] [facility] 2019-07-01 14:40:00 2019-07-01 23:59:00 Hospital Encounter Cece Vanthia [facility] [id number] [id number] [id number] 2019-07-01 14:40:00 2019-07-01 23:59:00 Hospital Encounter Cece Vanthia [facility] [id number] [id number] [id number] [id number] [facility] 2019-07-01 13:50:45 2019-07-01 14:10:45 Urgent Care [facility], Acute Care Clinic [facility] [id number] [id number] [id number] 2019-07-01 13:50:45 2019-07-01 14:10:45 Urgent Care Pob1, Acute Care Clinic Merari Echols [facility] [id number] [id number] [id number] [id number] [facility] 2019-05-23 00:00:00 2019-05-23 00:00:00 Telephone [facility] [id number] [id number] 4.2.7.2.686 [id number] 2019-05-23 00:00:00 2019-05-23 00:00:00 [facility] [id number] [id number] 4.2.7.2.686 [id number] 2019-05-23 00:00:00 2019-05-23 00:00:00 Telephone [facility] [id number] [id number] [id number] [facility] 2019-05-23 00:00:00 2019-05-23 00:00:00 Telephone [facility] [id number] [id number] [id number] [id number] [facility] 2019-05-22 09:00:00 2019-05-22 09:00:00 Outpatient R UNKNOWN, ATTENDING [facility] [id number] [facility] 2018-12-05 19:40:38 2018-12-05 22:00:00 Emergency X JOE PAZ [facility] E[facility] [id number] [facility] 2018-11-21 09:24:04 2018-11-21 11:48:00 Emergency X KELSY AVILA [facility] ERT [id number] [facility] Results Test Description Test Time Test Comments [...] small bilateral inguinalhernias.Hepatomega ly and hepatic steatosis. [facility] XR CHEST 2 VW COVID 20:07:14 Minimal congestion in the lungs, consistent with nonspecificwhite loss infection/bronchitis. Disclaimer: Generally, the findings on chest imaging in COVID-19 are notspecific, and overlap with other infections, including influenza, H1N1,SARS and MERS.According to the Centers for Disease Control (CDC) and the [employer], viral testing remains the only [...] Centers for Disease Control (CDC) and the [employer], viral testing remains the only specific method of diagnosiseven if CXR or CT findings are suggestive of COVID-19. [facility]
[2024-04-17] MEDS ORDERED: ONDANSETRON 4 MG/2 ML VIAL ONE (17:52)
[2024-04-17] MEDS ORDERED: MORPHINE 4 MG/ML SYR ONE (17:53)
[2024-04-17] MEDS ORDERED: NA CHLORIDE 0.9% 1,000 ML ONE (17:53)
[2024-04-17 17:54] LABS: Absolute Basophils 0.1 K/uL (0-0.5); Absolute Eosinophils 0.2 K/uL (0-0.5); Absolute Lymphocytes (CBC) 3.2 K/uL (0.7-4.9); Absolute Monocytes 0.8 K/uL (0.1-1.3); Absolute Neutrophil 3.5 K/uL (1.8-8.0); Basophils % 0.8 % (0-1.3); Eosinophils % 3.1 % (0-4.4); Hematocrit 37.1 % (36.0-45.0); Hemoglobin 12.8 g/dL (12.0-15.0); Lymphocytes % 41.2 % (15.3-44.8); MCHC 34.6 g/dL (32.0-36.0); MCV 83.7 fL (80-100); MPV 8.7 fL (7.6-11.3); Monocytes % 9.9 % (3.3-12.3); Platelets 237 thou/uL (152-406); RBC Red Blood Cell Count 4.43 M/uL (3.86-4.86); Red Cell Distribution Width 14.9 % (12.1-15.2)
[2024-04-17 18:15] LABS: Albumin 3.7 g/dL (3.4-5.0); Anion Gap 7.3 mEq/L (5.0-15.0); Bilirubin Total 0.3 mg/dL (0.2-1.0); Globulin 3.8 g/dL (2.3-3.5); Potassium 3.3 mEq/L (3.5-5.1); Protein, Total 7.5 g/dL (6.4-8.2)
--- NOTE | 2024-04-17 19:18 | RAD REPORT ---
EXAMINATION: CT ABDOMEN AND PELVIS WITH CONTRAST CLINICAL INDICATION: NAUSEA / VOMITING TECHNIQUE: CT abdomen and pelvis was performed, after the administration of IV contrast, as per [facility] protocol. Axial, sagittal and coronal reconstructions were obtained. One or more of the following dose reduction techniques were used: Automated exposure control, adjustment of the mA and k V according to patient size, and iterative reconstruction. Unless otherwise specified, incidental findings do not require dedicated imaging follow-up. COMPARISON: 03/11/2024 FINDINGS: LOWER CHEST: The visualized lung bases are clear. LIVER: Mild fatty liver is present. No focal lesion or biliary dilatation is seen. Cholecystectomy clips. SPLEEN: Normal size. No focal lesion. PANCREAS: No mass, ductal dilation, or david-pancreatic fluid. ADRENALS: Normal; no mass. KIDNEYS: Normal size and contour. No hydronephrosis. GASTROINTESTINAL TRACT: No evidence of free air, significant intra-abdominal free fluid, bowel obstru ction or abscess. Moderate stool in the colon. There is mild diverticulosis coli of the sigmoid colon without diverticulitis. APPENDIX: Appendix surgically absent. LYMPH NODES: No lymphadenopathy. MUSCULOSKELETAL: Lower lumbar disc bulging is present. IMPRESSION: No acute or concerning abnormalities seen in the abdomen or pelvis. Prominent sigmoid diverticulosis coli.
[2024-04-17] MEDS ORDERED: METRONIDAZOLE 500mg IVPB 500 MG/100 ML BAG IV ONE (20:01)
[2024-04-17] MEDS ORDERED: Levofloxacin500mg IV 500 MG/100 ML BAG IV ONE (20:18)
--- NOTE | 2024-04-17 21:50 | EDPHYS ---
Physician Documentation [facility] Name: Judi Field Age: 58 yrs Sex: Female : 1965 Arrival Date: 04/17/2024 Time: 16:57 Bed 15 Private MD: ED Physician Hilario Duval HPI: 04/17 22:41 This 58 yrs old Female presents to ER via Ambulatory with complaints of dr5 Abdominal Pain. 22:41 The patient presents with abdominal pain in the left lower quadrant. Onset: The dr5 symptoms/episode began/occurred acutely. Patient is a 58-year-old female with history of hypertension, GERD coming in with lower abdominal pain and bright red blood rectal bleeding that started today. Patient saw Dr. Johnson today who advised her to come into ER for CT scan and blood work.. Historical: - Allergies: 17:03 Latex; ll1 - PMHx: 17:03 GERD; Hypertensive disorder; ll1 - PSHx: 17:03 Appendectomy; section; Cholecystectomy; exp. lap.; hysterectomy; ll1 - Immunization history:: Adult Immunizations up to date. - Infectious Disease History:: Denies. - Social history:: Smoking status: Patient denies any tobacco usage or history of. ROS: 22:42 Constitutional: as per hpi dr5 Exam: 22:42 Constitutional: This is a well developed, well nourished patient who is awake, alert, dr5 and in no acute distress. Head/Face: Normocephalic, atraumatic. Eyes: Pupils equal round and reactive to light, extra-ocular motions intact. Lids and lashes normal. Conjunctiva and sclera are non-icteric and not injected. Cornea within normal limits. Periorbital areas with no swelling, redness, or edema. Neck: Trachea midline, no thyromegaly or masses palpated, and no cervical lymphadenopathy. Supple, full range of motion without nuchal rigidity, or vertebral point tenderness. No Meningismus. Chest/axilla: Normal chest wall appearance and motion. Nontender with no deformity. No lesions are appreciated. Cardiovascular: Regular rate and rhythm with a normal S1 and S2. Normal PMI, no JVD. No pulse deficits. Respiratory: Lungs have equal breath sounds bilaterally, clear to auscultation. No rales, rhonchi or wheezes noted. No increased work of breathing, no retractions or nasal flaring. Back: No spinal tenderness. No costovertebral tenderness. Full range of motion. Skin: Warm, dry with normal turgor. Normal color with no rashes, no lesions, and no evidence of cellulitis. MS/ Extremity: Pulses equal, no cyanosis. Neurovascular intact. Full, normal range of motion. Neuro: Awake and alert, GCS 15, oriented to person, place, time, and situation. Cranial nerves II-XII grossly intact. Motor strength 5/5 in all extremities. Sensory grossly intact. Cerebellar exam normal. Normal gait. 22:42 Abdomen/GI: Inspection: abdomen appears normal, Bowel sounds: normal, Palpation: moderate abdominal tenderness, in the left lower quadrant, Vital Signs: 18:11 BP 139 / 86; Pulse 86; Resp 17; Temp 98.7; Pulse Ox 95% ; Weight 83.01 kg; Height 5 ft. ll1 6 in. ; 18:30 BP 132 / 84; Pulse 84; Resp 18; Temp 98; Pulse Ox 100% ; kj2 19:30 BP 122 / 70; Pulse 78; Resp 18; Pulse Ox 100% on R/A; kj2 20:45 BP 110 / 74; Pulse 80; Resp 18; Pulse Ox 100% on R/A; kj2 21:44 BP 104 / 75; Pulse 74; Resp 18; Temp 98; Pulse Ox 100% ; kj2 18:11 Body Mass Index 29.54 (83.01 kg, 167.64 cm) ll1 MDM: 17:02 Medical Screening Exam initiated dr5 22:42 Differential diagnosis: diverticulitis, GI Bleed, Irritable bowel syndrome, dr5 non-specific abd pain, perforated diverticulum. Data reviewed: vital signs, nurses notes. Management of patient was discussed with the following: Primary Care Provider: Dr. Johnson. I considered the following discharge prescriptions or medication management in the emergency department Medications were administered in the Emergency Department. See MAR. Historians other than the Patient: Spouse/Significant Other: . Care significantly affected by the following chronic conditions: Hypertension, GERD. Care significantly affected by the following Social Determinants of Health: Poor access to healthcare and/or lack of insurance, Poor access to transportation, Problems related to employment. Counseling: I had a detailed discussion with the patient and/or guardian regarding the historical points, exam findings, and any diagnostic results supporting the discharge/admit diagnosis, the presence of at least one elevated blood pressure reading (>120/80) during this emergency department visit, lab results, the need for outpatient follow up, for definitive care, a family practitioner, to return to the emergency department if symptoms worsen or persist or if there are any questions or concerns that arise at home. ED course: Discussed case with Dr. Johnson. I gave him lab results as well as CT results. Dr. Johnson recommended 1 dose of Levaquin and 1 dose of Flagyl 500 mg each to be given in ER. Patient instructed per Dr. Johnson to be on 2 days of clear liquid diet, call his office next Sunday and make an appointment. Dr. Johnson will write prescriptions to her pharmacy that she will product picker tomorrow and take as prescribed. Patient verbalized understanding and agreeable to plan. Also reiterated to avoid alcohol while on Flagyl. Return to ER for worsening conditions or other concerns.. 04/17 17:14 Order name: CBC with Diff; Complete Time: 17:58 [facility] 04/17 17:14 Order name: CMP; Complete Time: 18:31 dr5 04/17 17:14 Order name: Lipase; Complete Time: 18:31 dr5 04/17 17:14 Order name: CT Abd/Pelvis - IV Contrast Only; Complete Time: 19:21 dr5 04/17 17:14 Order name: IV Saline Lock; Complete Time: 18:32 dr5 04/17 17:14 Order name: Labs collected and sent; Complete Time: 18:32 dr5 Administered Medications: 17:59 Drug: NS 0.9% IV 1000 ml IV at 1 bolus Per protocol; to be given as a bolus over 60 dr5 minutes Route: IV; Rate: 1 bolus; Site: right antecubital; 20:48 Follow up: IV Status: Completed infusion; IV Intake: 1000ml kj2 18:00 Drug: Ondansetron IVP 4 mg IVP once; over 2 minutes Route: IVP; Site: right antecubital;dr5 20:49 Follow up: Response: No adverse reaction kj2 18:00 Drug: morphine IVP or IV 4 mg IVP once over 4 mins Route: IVP; Infused Over: 4 mins; dr5 Site: right antecubital; 20:49 Follow up: Response: No adverse reaction kj2 20:05 Drug: metroNIDAZOLE IVPB 500 mg 100 ml IVPB at 200 ml/hr once over 30 mins Volume: 100 kj2 ml; Route: IVPB; Rate: 200 ml/hr; Infused Over: 30 mins; Site: right antecubital; 20:48 Follow up: IV Status: Completed infusion; IV Intake: 100ml kj2 20:48 Drug: levofloxacin IVPB 500 mg 100 ml IVPB once over 60 mins Volume: 100 ml; Route: kj2 IVPB; Infused Over: 60 mins; Site: right antecubital; 21:55 Follow up: IV Status: Completed infusion; IV Intake: 100ml kj2 Disposition Summary: 04/17/24 21:49 Discharge Ordered Notes: Location: Home dr5 Condition: Stable dr5 Diagnosis - Diverticulosis of large intestine without perforation or abscess without bleeding dr5 Followup: dr5 - With: Emergency Department - When: As needed - Reason: Worsening of condition Followup: dr5 - With: Private Physician - When: 1 week - Reason: Recheck today's complaints, Continuance of care, Re-evaluation by your physician Discharge Instructions: - Discharge Summary Sheet dr5 - Clear Liquid Diet, Adult dr5 - Diverticulosis dr5 Forms: - Medication Reconciliation Form dr5 - Antibiotic Education dr5 - Patient Portal Instructions dr5 - Leadership Thank You Letter dr5 Addendum: 04/19/2024 02:53 I was immediately available for consultation during this patient's visit. I did not e c2 personally see the patient or discuss the patient with the REY. . Signatures: Dispatcher [employer] [facility] Saba Henning RN RN ll1 Hilario Duval MD MD ec2 Buffy Lynch RN RN kj2 Alberto Jimenez, QUALITY CONTROL INSPECTOR-C QUALITY CONTROL INSPECTOR-5 Corrections: (The following items were deleted from the chart) 04/17 17:14 17:14 Abdomen Pelvis W Con+CT.RAD.BRZ ordered. [facility] EDPA 22:42 22:41 The patient presents with abdominal pain right lower quadrant, in the left lower dr5 quadrant, dr5 22:42 22:41 Patient is a 58-year-old female with history of hypertension, GERD coming in with dr5 lower abdominal pain and bright red blood rectal bleeding . dr5
--- NOTE | 2024-04-17 21:50 | ER ---
Nurse's Notes [facility] Name: Judi Field Age: 58 yrs Sex: Female : 1965 Arrival Date: 04/17/2024 Time: 16:57 Bed 15 Private MD: Diagnosis: Diverticulosis of large intestine without perforation or abscess without bleeding Presentation: 04/17 17:03 Chief complaint: Patient states: L sided abdominal pain. ll1 18:11 Coronavirus screen: Client denies travel out of the [place] in the last 14 days. At this ll1 time, the client does not indicate any symptoms associated with coronavirus-19. Ebola Screen: Patient denies travel to an Ebola-affected area in the 21 days before illness onset. Initial Sepsis Screen: Does the patient meet any 2 criteria? No. Patient's initial sepsis screen is negative. Does the patient have a suspected source of infection? No. Patient's initial sepsis screen is negative. Risk Assessment: Do you want to hurt yourself or someone else? Patient reports no desire to harm self or others. 18:11 Method Of Arrival: Ambulatory ll1 18:11 Acuity: GLADYS 3 ll1 18:11 Onset of symptoms. ll1 Triage Assessment: 17:03 General: Appears uncomfortable, Behavior is calm, cooperative, appropriate for age. ll1 Pain: Complains of pain in abdomen. GI: Reports lower abdominal pain, upper abdominal pain. Historical: - Allergies: 17:03 Latex; ll1 - PMHx: 17:03 GERD; Hypertensive disorder; ll1 - PSHx: 17:03 Appendectomy; section; Cholecystectomy; exp. lap.; hysterectomy; ll1 - Immunization history:: Adult Immunizations up to date. - Infectious Disease History:: Denies. - Social history:: Smoking status: Patient denies any tobacco usage or history of. Screenin:30 [facility] ED Fall Risk Assessment (Adult) History of falling in the last 3 months, kj2 including since admission No falls in past 3 months (0 pts) Confusion or Disorientation No (0 pts) Intoxicated or Sedated No (0 pts) Impaired Gait No (0 pts) Mobility Assist Device Used No (0 pt) Altered Elimination No (0 pt) Score/Fall Risk Level 0 - 2 = Low Risk Maintained a safe environment, Hourly rounding (assess needs \T\ fall precautionary measures) done. Abuse screen: Denies threats or abuse. Denies injuries from another. Nutritional screening: No deficits noted. Tuberculosis screening: No symptoms or risk factors identified. Assessment: 18:30 General: Appears in no apparent distress. Behavior is calm, cooperative. Pain: kj2 Complains of pain in abdomen. Neuro: Level of Consciousness is awake, Oriented to person, place, time, situation. Cardiovascular: Patient's skin is warm and dry. Respiratory: Airway is patent Respiratory effort is even, unlabored. GI: Bowel sounds present X 4 quads. Abdomen is tender to palpation X 4 quads. : No signs and/or symptoms were reported regarding the genitourinary system. 19:56 Reassessment: Patient appears in no apparent distress at this time. Patient and/or kj2 family updated on plan of care and expected duration. Pain level reassessed. Patient is alert, oriented x 3, equal unlabored respirations, skin warm/dry/pink. 20:46 Reassessment: Patient appears in no apparent distress at this time. Patient and/or kj2 family updated on plan of care and expected duration. Pain level reassessed. Patient is alert, oriented x 3, equal unlabored respirations, skin warm/dry/pink. 21:44 Reassessment: Patient appears in no apparent distress at this time. Patient and/or kj2 family updated on plan of care and expected duration. Pain level reassessed. Patient is alert, oriented x 3, equal unlabored respirations, skin warm/dry/pink. Vital Signs: 18:11 BP 139 / 86; Pulse 86; Resp 17; Temp 98.7; Pulse Ox 95% ; Weight 83.01 kg; Height 5 ft. ll1 6 in. ; 18:30 BP 132 / 84; Pulse 84; Resp 18; Temp 98; Pulse Ox 100% ; kj2 19:30 BP 122 / 70; Pulse 78; Resp 18; Pulse Ox 100% on R/A; kj2 20:45 BP 110 / 74; Pulse 80; Resp 18; Pulse Ox 100% on R/A; kj2 21:44 BP 104 / 75; Pulse 74; Resp 18; Temp 98; Pulse Ox 100% ; kj2 18:11 Body Mass Index 29.54 (83.01 kg, 167.64 cm) ll1 ED Course: 16:58 Patient arrived in ED. mr 17:00 Inserted saline lock: 18 gauge in right antecubital area, using aseptic technique. ll1 Blood collected. Flushed with 10 mL NS. 17:02 Alberto Jimenez FNP-C is PHCP. dr5 17:02 Hilario Duval MD is Attending Physician. dr5 17:03 Arm band placed on. ll1 17:21 Radiology exam delayed due to lab results not completed at this time. (BUN/Creatinine) jc4 IV insertion attempt and/or patient not having appropriate IV at this time. 18:12 Triage completed. ll1 18:30 Patient has correct armband on for positive identification. Bed in low position. Call kj2 light in reach. Provided Education on: call light. 18:47 CT Abd/Pelvis - IV Contrast Only In Process Unspecified. EDMS 19:51 Buffy Lynch, RN is Primary Nurse. kj2 19:56 No provider procedures requiring assistance completed. kj2 21:56 IV discontinued, intact, bleeding controlled, No redness/swelling at site. Pressure kj2 dressing applied. Administered Medications: 17:59 Drug: NS 0.9% IV 1000 ml IV at 1 bolus Per protocol; to be given as a bolus over 60 dr5 minutes Route: IV; Rate: 1 bolus; Site: right antecubital; 20:48 Follow up: IV Status: Completed infusion; IV Intake: 1000ml kj2 18:00 Drug: Ondansetron IVP 4 mg IVP once; over 2 minutes Route: IVP; Site: right antecubital;dr5 20:49 Follow up: Response: No adverse reaction kj2 18:00 Drug: morphine IVP or IV 4 mg IVP once over 4 mins Route: IVP; Infused Over: 4 mins; dr5 Site: right antecubital; 20:49 Follow up: Response: No adverse reaction kj2 20:05 Drug: metroNIDAZOLE IVPB 500 mg 100 ml IVPB at 200 ml/hr once over 30 mins Volume: 100 kj2 ml; Route: IVPB; Rate: 200 ml/hr; Infused Over: 30 mins; Site: right antecubital; 20:48 Follow up: IV Status: Completed infusion; IV Intake: 100ml kj2 20:48 Drug: levofloxacin IVPB 500 mg 100 ml IVPB once over 60 mins Volume: 100 ml; Route: kj2 IVPB; Infused Over: 60 mins; Site: right antecubital; 21:55 Follow up: IV Status: Completed infusion; IV Intake: 100ml kj2 Medication: 18:30 VIS not applicable for this client. kj2 Intake: 20:48 IV: 100ml; Total: 100ml. kj2 20:48 IV: 1000ml; Total: 1100ml. kj2 21:55 IV: 100ml; Total: 1200ml. kj2 Outcome: 21:49 Discharge ordered by . dr5 21:56 Discharged to home ambulatory, kj2 21:56 Condition: stable 21:56 Discharge instructions given to patient, Instructed on discharge instructions, follow up and referral plans. Demonstrated understanding of instructions, follow-up care, 21:57 Patient left the ED. kj2 Signatures: Dispatcher [employer] EDMS Shazai Mcfarlane, Reg Reg mr Saba Henning, RN RN ll1 Renny Rea jc4 Buffy Lynch RN RN kj2 Alberto Jimenez, SEED CUTTER-C SEED CUTTER-Cdr5 Corrections: (The following items were deleted from the chart) 18:12 18:12 Chief complaint: Patient states: L sided abdominal pain ll1 ll1 18:26 18:11 Pulse 86bpm; Resp 17bpm; Pulse Ox 95%; Temp 98.7F; 83.01 kg; Height 5 ft. 6 in.; ll1 BMI: 29.5; ll1
[2024-04-17 22:31] VITALS: TEMP 98; O2SAT 100
[2024-04-17 22:39] VITALS: BP 104/75
== END 2024-04-17 21:57 | disposition home or self-care (01) ==
LOC: ER 16:57
DX: K57.30 Diverticulosis of large intestine without perforation or abscess without bleeding (principal)
CPT/HCPCS: 96365; 96367; 96361; 85025; 36415; 83690; 80053; 74177; 96375; 99284; Q9967; J2405; J7030